=== PATIENT | female | born 1995 | race American Indian/Alaskan Native ===

== ENCOUNTER 2016-12-18 14:17 | Inpatient (IN) | payer MEDICAID, OTHER ==
[~2016-12-18 14:17] MED LIST: Lactated Ringer's 500 ML IV ONE
--- NOTE | 2016-12-18 15:35 | ED PDOC ---
HPI: Abdomen Time Seen by Provider: 12/18/16 14:40 Chief Complaint (Nursing): Abdominal Pain Chief Complaint (Provider): Abd pain History Per: Patient History/Exam Limitations: no limitations Onset/Duration Of Symptoms: Days (3 weeks) Outside of [place] travel?: No Current Symptoms Are (Timing): Still Present Additional Complaint(s): Pt. with abd pain and diarrhea for 3 weeks. Seen at [facility] after being given a laxative with catscan showing some obstruction. Pt. saw Dr. Darian BRITT and sent to the ER for evaluation. Pt. denies any new food, travel, back pain, dysuria, headaches, neck pain, chest pain, dyspnea, fever. Feels weak all over. Past Medical History Reviewed: Nursing Documentation, Vital Signs Vital Signs: Last Vital Signs Temp 98.3 F 12/18/16 14:31 Pulse 139 H 12/18/16 16:37 Resp 22 12/18/16 15:00 BP 118/66 12/18/16 15:00 Pulse Ox 97 12/18/16 17:36 - Medical History PMH: Asthma - Surgical History Surgical History: No Surg Hx - Family History Family History: States: Unknown Family Hx - Living Arrangements Living Arrangements: With Family - Social History Current smoker - smoking cessation education provided: No Alcohol: None Drugs: Denies - Immunization History Hx Tetanus Toxoid Vaccination: No Hx Influenza Vaccination: No Hx Pneumococcal Vaccination: No - Home Medications Home Medications: Ambulatory Orders Medication Instructions Recorded Bisacodyl [Dulcolax] 5 mg PO BID PRN 12/18/16 Ibuprofen [Motrin Tab] 600 mg PO Q6H 12/18/16 Nitrofurantoin Macrocrystals 100 mg PO BID 12/18/16 [Macrobid] Polyethylene Glycol 3350 [Miralax] 17 gm PO DAILY 12/18/16 - Allergies Allergies/Adverse Reactions: Allergies Allergy/AdvReac Type Severity Reaction Status Date / Time peanut Allergy Severe hives Verified 12/18/16 14:31 Review of Systems ROS Statement: Except As Marked, All Systems Reviewed And Found Negative Constitutional: Positive for: Weakness Gastrointestinal: Positive for: Abdominal Pain, Diarrhea Neurological: Positive for: Weakness Physical Exam - Reviewed Nursing Documentation Reviewed: Yes Vital Signs Reviewed: Yes - Physical Exam Appears: Positive for: Uncomfortable Head Exam: Positive for: ATRAUMATIC, NORMAL INSPECTION, NORMOCEPHALIC Skin: Positive for: Normal Color, Warm, DRY Eye Exam: Positive for: EOMI, Normal appearance, PERRL ENT: Positive for: Normal ENT Inspection Neck: Positive for: Normal, Painless ROM, Supple Cardiovascular/Chest: Positive for: Tachycardia. Negative for: Edema Respiratory: Positive for: CNT, Normal Breath Sounds Gastrointestinal/Abdominal: Positive for: Bowel Sounds, Soft, Tenderness ( diffuse) Back: Positive for: Normal Inspection. Negative for: L CVA Tenderness, R CVA Tenderness Extremity: Positive for: Normal ROM. Negative for: Tenderness, Pedal Edema Neurologic/Psych: Positive for: Alert, Oriented. Negative for: Motor/Sensory Deficits - Laboratory Results Result Diagrams: 12/18/16 15:30 12/18/16 15:30 Interpretation Of Abn Labs: 15.2 wbc; 3.2 lactate - ECG ECG: Positive for: Interpreted By Me, Viewed By Me ECG Rhythm: Positive for: Sinus Tachycardia O2 Sat by Pulse Oximetry: 97 Pulse Ox Interpretation: Normal - CT Scan/US ct Other Rad Studies (CT/US): Read By Radiologist Other Rad Interpretation: 15cm dilated sigmoid colon with constipation - Progress ED Course And Treament: 1735: Heart rate improving. Continue monitoring. Feels better. 1820: Stable. Spoke with Dr. Casillas. Will consult. Wants surgical scrub tech to see pt. Spoke with Dr. Farmer. States needs surgical consult. Spoke with surgical scrub tech. Will see pt. Dr. Sanchez aware. Will admit to ICU. Pt. stable. Continue fluids. AAOx3. 1910: Stable. - Critical Care Total Time (In Min): 30 Documented Critical Care: Time excludes all time spent performint seperately billable procedures Disposition - Clinical Impression Clinical Impression: Fecal impaction, Abdominal pain - Patient ED Disposition Is Patient to be Admitted: Yes Counseled Patient/Family Regarding: Studies Performed, Diagnosis - Disposition Disposition Time: 19:09 Condition: SERIOUS - Pt Status Changed To: Hospital Disposition Of: Inpatient - Admit Certification Admit to Inpatient:: After my assessment, the patient will require hospitalization for at least two midnights. This is because of the severity of symptoms shown, intensity of services needed, and/or the medical risk in this patient being treated as an outpatient. - POA Present On Arrival: None
[2016-12-18 15:52] LABS: BASO % 0.1 % (0.0-2.0); EOS % 0.1 % (0.0-4.0); LYMPH # 0.9 K/uL (1.0-4.3); LYMPH % 5.9 % (20.0-40.0); MEAN CELL VOLUME 88.4 fl (81.0-99.0); MEAN CORPUSCULAR HEMOGLOBIN 29.1 pg (27.0-31.0); MEAN CORPUSCULAR HGB CONC 32.9 g/dL (33.0-37.0); MEAN PLATELET VOLUME 7.1 fl (7.2-11.7); MONO # 1.5 K/uL (0.0-0.8); MONO % 9.6 % (0.0-10.0); NEUT # 12.9 K/uL (1.8-7.0); NEUT % 84.3 % (50.0-75.0); PLATELET COUNT 532 K/uL (130-400); RED CELL DISTRIBUTION WIDTH 14.6 % (11.5-14.5); WHITE BLOOD COUNT 15.2 K/uL (4.8-10.8)
[2016-12-18 16:05] LABS: VENOUS BLOOD GAS BASE EXCESS 0.7 mmol/L (0.0-2.0); VENOUS BLOOD GAS PCO2 54 mmHg (40-60); VENOUS BLOOD PH 7.32 (7.32-7.43)
[2016-12-18 16:14] LABS: NEUTROPHIL 85 % (42-75); TOTAL CELLS COUNTED 100
[2016-12-18 16:16] LABS: ALKALINE PHOSPHATASE 81 U/L (38-126); ALT/SGPT 20 U/L (9-52); AST/SGOT 31 U/L (14-36); BILIRUBIN,TOTAL 1.5 mg/dl (0.2-1.3); BLOOD UREA NITROGEN 14 mg/dl (7-17); CALCIUM 9.9 mg/dL (8.4-10.2); CARBON DIOXIDE 23 mmol/L (22-30); CHLORIDE 101 mmol/L (98-107); GFR AFRICAN-AMERICAN > 60; GLUCOSE,RANDOM 116 mg/dL (65-105); MAGNESIUM 2.7 MG/DL (1.6-2.3); PHOSPHOROUS 4.7 mg/dl (2.5-4.5); POTASSIUM 4.1 MMOL/L (3.6-5.0); SODIUM 142 mmol/l (132-148); TOTAL PROTEIN 8.9 G/DL (6.3-8.2)
[2016-12-18 16:59] LABS: PARTIAL THROMBOPLASTIN TIME 26.7 Seconds (25.6-37.1)
[2016-12-18] MEDS ORDERED: Iohexol 300 100 ML IJ ONE (17:24)
[2016-12-18] MEDS ORDERED: Sodium Chloride 0.9% 50 ML IV ONE (17:24)
[2016-12-18] MEDS ORDERED: metroNIDAZOLE 500mg/100ml NS 100 ML IV STA (17:36)
[2016-12-18] MEDS ORDERED: Ciprofloxacin 400mg/200ml D5W 400 MG/200 ML BAG IV STA (17:36)
--- NOTE | 2016-12-18 18:09 | CT ---
PROCEDURE: CT Abdomen and Pelvis with oral and IV contrast. HISTORY: abd pain COMPARISON: Comparison is made with CT performed at [facility] on 12/03/16 TECHNIQUE: Contiguous axial images of the abdomen and pelvis. Oral and IV contrast was administered. Coronal and Sagittal reformats generated and reviewed. Contrast dose: 100 cc Visipaque 320 Radiation dose: Total exam DLP = 703.67 mGy-cm. This CT exam was performed using one or more of the following dose reduction techniques: Automated exposure control, adjustment of the mA and/or kV according to patient size, and/or use of iterative reconstruction technique. FINDINGS: LOWER THORAX: No visible consolidation, pleural effusion, or pneumothorax. LIVER: Unremarkable. GALLBLADDER AND BILE DUCTS: Unremarkable. PANCREAS: Unremarkable. SPLEEN: Unremarkable. ADRENALS: Unremarkable. KIDNEYS AND URETERS: The kidneys enhance symmetrically. No hydronephrosis or obstructing renal calculus. Nonobstructing 4 mm right renal calculus. BLADDER: Distended colon exerts mass effect on the urinary bladder which is deviated anteriorly and to the right. REPRODUCTIVE: Distended colon exerts mass effect on the uterus which is deviated anteriorly. APPENDIX: The appendix appears within normal limits of caliber. BOWEL: The stomach is nondistended. The sigmoid colon is markedly distended impacted with feces measures up to 15 centimeter in diameter and seen extending up to the right upper abdomen. Thickening of the sigmoid colon wall is also noted suspicious for colitis. Mild constipation is also noted in the rest of the colon. PERITONEUM: No significant free fluid. No definite free air. LYMPH NODES: No bulky lymphadenopathy identified. VASCULATURE: No aortic aneurysm. BONES: No acute osseous abnormality is detected. OTHER FINDINGS: None. IMPRESSION: The sigmoid colon is markedly distended impacted with feces measures up to 15 centimeter in diameter and seen extending up to the right upper abdomen. Thickening of the sigmoid colon wall is also noted suspicious for colitis. Mild constipation is also noted in the rest of the colon. Mass effect from distended colon is exerted on the urinary bladder and the uterus. Findings discussed with Dr. De Anda on 12/18/16 at 6 p.m..
[2016-12-18] MEDS ORDERED: Ciprofloxacin 400mg/200ml D5W 400 MG/200 ML BAG IVPB ONE (18:34)
[2016-12-18 18:55] LABS: VENOUS BLOOD GAS BASE EXCESS -3.5 mmol/L (0.0-2.0); VENOUS BLOOD GAS PCO2 41 mmHg (40-60); VENOUS BLOOD PH 7.34 (7.32-7.43)
[2016-12-18] MEDS ORDERED: metroNIDAZOLE 500mg/100ml NS 100 ML IVPB SCH (19:15)
[2016-12-18] MEDS ORDERED: Potassium Chl 40 mEq in D5-NS 1,000 ML IV SCH (19:15)
--- NOTE | 2016-12-18 20:34 | CP.PCM.CON ---
<RiojhonRiley rome Anastacia - Last Filed: 12/18/16 20:48> History of Present Illness - History of Present Illness History of Present Illness: SURGERY CONSULT NOTE FOR DR. DOUGLAS 21F presents to [place] with abdominal pain after being sent here by her GI doctor, Dr. Farmer. Patient states she has always had abdominal pain but this most recent episode started today. She describes the pain as sharp and diffused. She admits a long history of constipation ever since she was a child. She has been treated with stool softeners and laxatives in the past. She is currently having liquid bowel movements but no formed stool. She denies nausea or vomiting. She has not had any intake PO today. Denies chest pain, SOB, fevers , chills. PMH: Asthma, Constipation PSH:denies Social:denies tobacco, alcohol abuse Allergies: peanuts Past Patient History - Infectious Disease Hx of Infectious Diseases: None - Past Social History Alcohol: None Drugs: Denies - PULMONARY Hx Asthma: Yes - PSYCHIATRIC Hx Substance Use: No - SURGICAL HISTORY Hx Surgeries: No - ANESTHESIA Hx Anesthesia: No Meds Allergies/Adverse Reactions: Allergies Allergy/AdvReac Type Severity Reaction Status Date / Time peanut Allergy Severe hives Verified 12/18/16 14:31 - Medications Medications: Current Medications Potassium Chloride/Dextrose/Sod Cl (D5-Ns1l+40meq Kcl) 1,000 mls @ 80 mls/hr IV .[id number] FERNANDO Stop: 12/19/16 19:04 Ciprofloxacin (Cipro 400mg/200ml Dsw) 400 mg in 200 mls @ 200 mls/hr IVPB Q12 FERNANDO Metronidazole (Flagyl 500mg/100ml Ns) 100 mls @ 100 mls/hr IVPB Q8 [facility] Ketorolac Tromethamine (Toradol) 30 mg IVP Q6 PRN PRN Reason: Pain, moderate (4-7) Physical Exam - Constitutional Additional comments: very comfortable - Head Exam Head Exam: ATRAUMATIC - Eye Exam Eye Exam: EOMI, PERRL - ENT Exam ENT Exam: Mucous Membranes Dry - Respiratory Exam Respiratory Exam: Clear to Auscultation Bilateral, NORMAL BREATHING PATTERN - Cardiovascular Exam Cardiovascular Exam: Tachycardia, REGULAR RHYTHM, +S1, +S2 - GI/Abdominal Exam GI & Abdominal Exam: Distended, Firm, Guarding, Rebound, Tenderness (severe). absent: Soft Additional comments: patient has severe pain with any kind of movement. - Exam Additional comments: urine in guillen is very dark red in color - Extremities Exam Extremities exam: Negative for: pedal edema, tenderness - Neurological Exam Neurological exam: Alert, Oriented x3 - Psychiatric Exam Psychiatric exam: Anxious - Skin Skin Exam: Dry, Intact, Normal Color, Warm Results - Vital Signs Recent Vital Signs: Last Vital Signs Temp 98.1 F 12/18/16 18:52 Pulse 155 H 12/18/16 20:07 Resp 11 L 12/18/16 20:07 BP 143/83 12/18/16 20:07 Pulse Ox 96 12/18/16 20:07 - Labs Result Diagrams: 12/18/16 15:30 12/18/16 15:30 Assessment & Plan - Assessment and Plan (Free Text) Assessment: 21F with abdominal pain 2/2 poss bowel perforation 2/2 severe fecal impaction Plan: - NPO - Pre-op patient - Emergent OR for Ex-Lap/bowel resection/colostomy - Admit to ICU s/p Operation Discussed with Dr. Sonja Cifuentes, PGY1 <Crispin Douglas - Last Filed: 12/18/16 21:12> History of Present Illness - History of Present Illness History of Present Illness: Patient was seen and examined with resident's in the ER department. Agree with resident's note above. Patient has a history of chronic constipation however today developed severe abdominal pain and was seen in the office of Dr. Farmer from gastroenterology and was send to the hospital straight from the office. Patient states that she gets occasional abdominal pains but not as sever as the pain that she has today. Denies any fever or chills, no nausea, no vomiting, reports diarrhea. Denies any urinary symptoms. Meds - Medications Medications: Current Medications Potassium Chloride/Dextrose/Sod Cl (D5-Ns1l+40meq Kcl) 1,000 mls @ 80 mls/hr IV .[id number] FERNANDO Stop: 12/19/16 19:04 Ciprofloxacin (Cipro 400mg/200ml Dsw) 400 mg in 200 mls @ 200 mls/hr IVPB Q12 FERNANDO Metronidazole (Flagyl 500mg/100ml Ns) 100 mls @ 100 mls/hr IVPB Q8 FERNANDO Sodium Chloride (Sodium Chloride 0.9%) 1,000 mls @ 125 mls/hr IV .Q8H FERNANDO Stop: 12/19/16 20:32 Ketorolac Tromethamine (Toradol) 30 mg IVP Q6 PRN PRN Reason: Pain, moderate (4-7) Physical Exam - Constitutional Appears: Non-toxic, No Acute Distress - Head Exam Head Exam: ATRAUMATIC, NORMAL INSPECTION, NORMOCEPHALIC - GI/Abdominal Exam Additional comments: Diffusely tender to palpation, distended, hypoactive bowel sounds, guarding and rebound tenderness Results - Vital Signs Recent Vital Signs: Last Vital Signs Temp 98.1 F 12/18/16 18:52 Pulse 138 H 12/18/16 20:38 Resp 11 L 12/18/16 20:07 BP 143/83 12/18/16 20:07 Pulse Ox 96 12/18/16 20:07 - Labs Result Diagrams: 12/18/16 15:30 12/18/16 15:30 Labs: Laboratory Results - last 24 hr 12/18/16 20:17 Urine Color Larissa Urine Clarity Clear Urine pH 5.0 Ur Specific [place] 1.054 H Urine Protein 30 Urine Glucose (UA) Neg Urine Ketones Trace Urine Blood Negative Urine Nitrate Negative Urine Bilirubin Moderate Urine Urobilinogen 4.0 H Ur Leukocyte Esterase Neg Urine RBC (Auto) 4 H Urine Microscopic WBC 3 Ur Squamous Epith Cells 3 Urine Bacteria Rare Hyaline Casts 0-2 - Imaging and Cardiology CT scan - abdomen Status: Image reviewed by me, Report reviewed by me Assessment & Plan - Assessment and Plan (Free Text) Plan: - Keep NPO - IV fluid hydration - Pain control - Antibiotics - To OR for Exploratory Laparotomy
[2016-12-18] MEDS ORDERED: metroNIDAZOLE 500mg/100ml NS 100 ML IVPB ONE (20:37)
[2016-12-18 20:42] LABS: RBC URINE 4 /hpf (0-3); URINE BACTERIA RARE (<OCC); URINE BILIRUBIN MODERATE (NEGATIVE); URINE BLOOD NEGATIVE (NEGATIVE); URINE COLOR AMBER (YELLOW); URINE GLUCOSE (UA) NEG (Normal); URINE KETONE TRACE mg/dL (NEGATIVE); URINE LEUKOCYTE ESTERASE NEG Leu/uL (Negative); URINE PROTEIN 30 mg/dL (NEGATIVE); WBC URINE 3 /hpf (0-5)
[2016-12-18] MEDS ORDERED: Sodium Chloride 0.9% 1,000 ML IV SCH (20:45)
[2016-12-18] MEDS ORDERED: Midazolam 2 MG/2 ML VIAL ONE (20:54)
[2016-12-18] MEDS ORDERED: Propofol 10 mg/ml Inj (20 ML) ONE (20:54)
[2016-12-18] MEDS ORDERED: Lidocaine Hydrochloride 5 ML INJ ONE (20:55)
[2016-12-18] MEDS ORDERED: Neostigmine Methylsulfate 2 MG/2 ML ML IV ONE (20:55)
[2016-12-18] MEDS ORDERED: Lidocaine 4% (Laryng-O-Jet) Kit MM ONE (20:55)
[2016-12-18] MEDS ORDERED: Succinylcholine 200 mg/10 ml Inj IV ONE (20:55)
[2016-12-18] MEDS ORDERED: Rocuronium 10 mg/ml (5 ml) ONE ×3 (20:57→23:55)
[2016-12-18] MEDS ORDERED: Ciprofloxacin 400mg/200ml D5W 400 MG/200 ML BAG IVPB SCH (21:00)
--- NOTE | 2016-12-18 21:19 | CP.PCM.HP ---
History of Present Illness - History of Present Illness History of Present Illness: CC: abd pain HPI: This is a 21 y/o female with no major chronic medical conditions who was sent to the ER by her GI doctor, Dr. Farmer, after he saw her in clinic today for ongoing abdominal pain. Patient states that she has been to another hospital several times since these symptoms started > 1 week ago, and had been treated with stool softeners and laxatives. She states pain has been getting worse, and she has only been having liquid BMs. No n/v. No blood in stool. She has not been able to take much PO recently. She has had some problems with constipation since she was a child. Denies prior abd surgeries. Denies any f/c. Denies CP/SOB. ROS: 14 systems reviewed, negative other than HPI MHx: Asthma, recurrent constipation SHx: None Allergies: NKDA, only peanuts Medications: None Family Hx: Reviewed, no relevant findings Social Hx: Lives with family, no regular tobacco or EtOH use Present on Admission - Present on Admission Any Indicators Present on Admission: No Past Patient History - Infectious Disease Hx of Infectious Diseases: None - Past Social History Alcohol: None Drugs: Denies - PULMONARY Hx Asthma: Yes - PSYCHIATRIC Hx Substance Use: No - SURGICAL HISTORY Hx Surgeries: No - ANESTHESIA Hx Anesthesia: No Meds Allergies/Adverse Reactions: Allergies Allergy/AdvReac Type Severity Reaction Status Date / Time peanut Allergy Severe hives Verified 12/18/16 14:31 Physical Exam - Constitutional Appears: No Acute Distress - Head Exam Head Exam: ATRAUMATIC, NORMOCEPHALIC - Eye Exam Eye Exam: EOMI, PERRL - ENT Exam ENT Exam: Mucous Membranes Moist - Respiratory Exam Respiratory Exam: Clear to Auscultation Bilateral, NORMAL BREATHING PATTERN - Cardiovascular Exam Cardiovascular Exam: Tachycardia, REGULAR RHYTHM - GI/Abdominal Exam GI & Abdominal Exam: Tenderness Additional comments: abdomen with severe ttp throughout, ? rigidity - Extremities Exam Extremities exam: Positive for: full ROM - Neurological Exam Neurological exam: Alert, CN II-XII Intact, Oriented x3 - Psychiatric Exam Psychiatric exam: Normal Affect, Normal Mood - Skin Skin Exam: Dry, Warm Results - Vital Signs Recent Vital Signs: Last Vital Signs Temp 98.1 F 12/18/16 18:52 Pulse 144 H 12/18/16 21:14 Resp 15 06/09/17 21:14 BP 149/85 12/18/16 21:14 Pulse Ox 98 12/18/16 21:14 - Labs Result Diagrams: 12/18/16 15:30 12/18/16 15:30 Labs: Laboratory Results - last 24 hr 12/18/16 20:17 Urine Color Larissa Urine Clarity Clear Urine pH 5.0 Ur Specific [place] 1.054 H Urine Protein 30 Urine Glucose (UA) Neg Urine Ketones Trace Urine Blood Negative Urine Nitrate Negative Urine Bilirubin Moderate Urine Urobilinogen 4.0 H Ur Leukocyte Esterase Neg Urine RBC (Auto) 4 H Urine Microscopic WBC 3 Ur Squamous Epith Cells 3 Urine Bacteria Rare Hyaline Casts 0-2 - Imaging and Cardiology CT scan - abdomen Status: Image reviewed by me (extensive fecal impaction, possible colitis), Report reviewed by me Assessment & Plan (1) Abdominal pain Assessment and Plan: 21 y/o female presenting with persistent and worsening abdominal pain with concern for perforation and peritonitis. -Patient is planned for OR this evening -Admit to ICU post surgery -Cont NPO, IVF for now -Cont IV cipro and flagyl Status: Acute (2) Fecal impaction Status: Acute (3) Diarrhea Status: Acute
[2016-12-18] MEDS ORDERED: Sodium Chloride 0.9% 300 ML IV ONE (21:30)
[2016-12-18] MEDS ORDERED: Lactated Ringer's 1,000 ML IV ONE ×3 (21:55→23:10)
--- NOTE | 2016-12-18 22:20 | CON ---
DATE: 12/18/2016 REASON FOR CONSULTATION: A 21-year-old female admitted with abdominal pain, abdominal distention. CT shows markedly distended sigmoid colon impacted with feces, thickening of the sigmoid colon suspicious for colitis. HISTORY OF PRESENT ILLNESS: The patient is a 21-year-old female with history of constipation alternating with diarrhea since last 3 weeks. The patient was seen in the Emergency Room on 12/05. CT of the abdomen obtained at that time showed markedly distended sigmoid colon with fecal impaction and thickening of the sigmoid colon suggesting colitis. The patient was given laxative and was discharged home with no significant improvement. She was seen in the Emergency Room at [facility] [address] of the abdomen obtained showed similar findings. She was discharged with a laxative and to follow up with GI, Dr. Farmer. The patient was seen in his office today, was referred to the Emergency Room for further evaluation. In ER, the patient was noted to have abdominal distention. VITAL SIGNS: Temperature 98.3, heart rate of 155. Respiratory rate 22, oxygen saturation 97% on room air, blood pressure 128/77. HISTORY OF PRESENT ILLNESS: The patient was given for pain with mild to moderate improvement. CAT scan of the abdomen obtained showed thickening of the sigmoid colon with fecal impaction. Admitted to ICU for further evaluation. PAST MEDICAL HISTORY: As noted above. PAST SURGICAL HISTORY: Negative. FAMILY HISTORY: Noncontributory. SOCIAL HISTORY: Denies smoking, drinking alcohol. No recreational drug use. PHYSICAL EXAMINATION: GENERAL: Well-built female in moderate distress secondary to abdominal pain and distention. VITAL SIGNS: Temperature 98.1, heart rate 138, respiratory rate 22, blood pressure 122/48, saturation 97%. HEENT: Pupils are reactive. Conjunctivae are pink. Sclerae white. NECK: Supple. CHEST: Bilateral breath sounds. Clear to auscultation. HEART: Rhythm regular, S1, S2 normal intensity. No S3, S4 gallop. No audible murmur. ABDOMEN: Abdominal distention, mostly in the lower abdomen. Bowel sounds present, but diminished. EXTREMITIES: No clubbing, cyanosis, or edema. NEUROLOGIC: Nonfocal. LABORATORY DATA: SMA-7: Sodium 142, potassium 4.1, chloride 101, CO2 23, blood urea nitrogen 14, creatinine 0.9, glucose 116, calcium 9.9, phosphorus 4.7 , magnesium 2.7, total bilirubin 1.5, AST 31, ALT 20, alkaline phosphatase 81, total protein 8.9, albumin 4.5. WBC 15.2, hemoglobin 14.8, hematocrit 45, platelet count neutrophils 84.3, lymphocytes 5.9, monocytes 9.6. PT 14.4, INR 1.3, PTT 26.7. Lactate 2.3. ASSESSMENT: A 21-year-old female admitted with abdominal pain, abdominal distention. CT of the abdomen shows dilated sigmoid colon with fecal impaction and marked thickening, suggesting colitis. PLAN: 1. Needs GI workup to evaluate for rectal mass versus colitis. 2. Keep n.p.o., D5 normal saline with 20 of KCl at 100 mL per hour. 3. Straight cath to reduce bladder distention. 4. Toradol 30 mg IV q. 6 p.r.n. for pain, ciprofloxacin 400 mg IV q. 12, Flagyl 500 mg q. 8. 5. Stool for Clostridium difficile. 6. GI consult evaluation. Lio Sanchez MD cc: 170 TT: 12/18/2016 22:19:00 Confirmation # [id number] Dictation # [id number] [id number]
[2016-12-18] MEDS ORDERED: Sevoflurane - Inhalation Anesthetic Liq (250 ml) ONE (23:39)
[2016-12-19] MEDS ORDERED: Liquid Adhesive TOP ONE (02:36)
[2016-12-19] MEDS ORDERED: HYDROmorphone 0.5 mg/0.5 ml ISec ONE (03:01)
[2016-12-19] MEDS: HYDROmorphone 0.5 mg/0.5 ml ISec IVP PRN ×3 (03:05→03:35)
[2016-12-19] MEDS ORDERED: Lactated Ringer's 1,000 ML IV SCH (03:10)
[2016-12-19] MEDS ORDERED: HYDROmorphone 0.5 mg/0.5 ml ISec IVP PRN (03:10)
--- NOTE | 2016-12-19 03:15 | PCM.SURG1 ---
Surgeon's Initial Post Op Note - Surgeon's Notes Surgeon: Sonja Functional Tester: Emiliano Cifuentes Pre-Operative Diagnosis: fecal impaction/poss bowel perforation Operative Findings: dilated colon with large hard rock stool Post-Operative Diagnosis: fecal impaction, severely dilated colon, poss perforation Operation Performed: exploratory laparotomy with hartmanns procedure Specimen/Specimens Removed: descending/sigmoid colon, stool Estimated Blood Loss: EBL {In ML}: 150 Date of Surgery/Procedure: 12/19/16 Time of Surgery/Procedure: 21:30
[2016-12-19] MEDS ORDERED: Sodium Chloride 0.9% 1,000 ML IV SCH (03:19)
--- NOTE | 2016-12-19 06:17 | OP ---
PROCEDURE DATE: 12/19/2016 PREOPERATIVE DIAGNOSIS: Large bowel obstruction POSTOPERATIVE DIAGNOSIS: Same PROCEDURE: Exploratory laparotomy, Clarisse's procedure SURGEON: Crispin Casillas MD TENNIS CAMP INSTRUCTOR: SECOND TENNIS CAMP INSTRUCTOR: Emiliano. ANESTHESIA: General with endotracheal intubation. INTRAVENOUS FLUIDS: Crystalloids. ESTIMATED BLOOD LOSS: 100 mL INTRAOPERATIVE FINDINGS: Severe distention of the sigmoid and the proximal descending colon and severe fecal impaction. SPECIMEN: Sigmoid colon and proximal rectum with proximal descending colon. BRIEF HISTORY: The patient is a very pleasant 21-year-old female who has a chronic history of constipation since the age of 2; however, patient never experienced severe pain as when they brought her to the hospital today. Initially, the patient presented to her hydraulic spinner and was immediately sent to the Emergency Room by her hydraulic spinner. The patient states the pain was of sudden onset and the patient was severely tachycardic to 150 upon presentation to the Emergency Room. Upon further investigation, the patient was found to have elevated white blood cell count as well as severe abdominal distension and dilatation of the sigmoid colon and severe fecal impaction all the way down to the mid descending colon. All the risks and benefits of the procedure were explained to the patient and with the patient having a full understanding of all the risks and benefits involved, informed consent was obtained and the patient was taken to the operating room for above stated procedure. PROCEDURE: The patient was brought into the operating room and placed supine on the operating table. Bilateral Flowtron boots were applied to patient's lower extremities. After successful induction of anesthesia and successful endotracheal intubation by the anesthesia team, the patient's abdomen was prepped with ChloraPrep stick and draped in the standard surgical fashion. Prior to the beginning of the procedure, timeout was called in the room and everyone in the room were in agreement. Using 10 blade scalpel knife midline laparotomy incision was made extending approximately 15 cm above the umbilicus and an approximate 10 cm below the umbilicus. Once this was accomplished, dissection was carried down with electrical cautery until the fascial layer was visualized. Fascia was transected with electrical cautery and 2 Katelyn clamps were placed on 2 ends of the fascia. At that point in time fascia was completely opened up and the patient's abdominal cavity was entered. At that point in time, once the fascia was completely opened up, we examined the abdominal cavity and it appeared that the sigmoid and the proximal descending colon as well as the rectum had a severe fecal impaction with a rock hard stool. At that point in time, decision was made to resect the involved segment of the colon that was atonic and redundant, so the peritoneal reflection was mobilized along the white line of Toldt. At that point in time, the mesentery was taken with the impact LigaSure all the way down to the proximal rectum. At that point in time, I could not mobilize any more so the decision was made to transect the colon at the mid to distal descending colon. At that point in time , once this was accomplished, a small kaley was made in the mesentery and the Katelyn clamp was placed through the mesentery and a 75 blue load JORDAN stapler was fired across the colon. Once this was accomplished, I made a decision to open up the colon and disimpact the patient in order to get some mobility of the colon. I was able to scoop out huge chunks of rock hard stool and that was passed off to the basin and passed off the field. At that point in time, the defect in the bowel was closed with running locking silk suture and at that point in time, attention was turned to the proximal rectum. The proximal rectum was transected with several bites of the blue load of JORDAN stapler; however, the colon appeared to be extremely thick for the stapler so at that point in time, the rest of the colon was taken with the impact LigaSure device and once this was accomplished, the patient's abdominal cavity was copiously irrigated and defect of the rectal stump was closed with a running 0 silk suture and subsequent to that with running locking 0 Vicryl suture. Once this was accomplished, our attention was turned to the left lower quadrant of the patient's abdomen. A circular incision was made in the left lower quadrant and subsequent to that, dissection was carried down with electrical cautery until the anterior rectus sheath was encountered. Cruciate incision was made in the anterior rectus sheath and the rectus muscle was retracted medially and laterally. At that point in time the posterior rectus sheath was encountered and another cruciate incision was made in the posterior rectus sheath. At that point in time, I was able to pass 2 fingers through the colostomy opening and once this was accomplished, a Bryce clamp was placed through the colostomy opening and the descending colon was brought up to the skin. At that point in time, the patient's abdomen was copiously irrigated and fluid was suctioned out. I made a decision to place a #19 Brody drain in the pelvis, right next to the rectal stump. Once this was accomplished, the 19Fr Brody drain was secured in place with silk suture. At that point in time, fascial layer was closed with two #1 loop PDS, one from above, one from below and tied in the middle and the patient's wound was irrigated and dried. Christiano were applied to the skin. At that point in time, our attention was turned to the colostomy. The colostomy was opened up with electrical cautery and a colostomy was matured with Any sutures at 12, 3, 9, and 6 o'clock positions with 3-0 Monocryl suture. Once that was accomplished, the rest of the colostomy maturation was done with 3-0 Monocryl suture in a circumferential fashion and at that point in time, once the colostomy was matured, it was digitalized and appeared to be patent. At that point in time, the patient's abdomen was washed and dried and a clean dressing was applied to the incision site and ostomy appliance to the colostomy. The patient was successfully extubated by the anesthesia team, transferred to the [facility] [place], and taken to the intensive care unit. At the end of the procedure, all instrument counts, needles and sponges were correct. Crispin Casillas MD cc: [id number] TT: 12/19/2016 06:16:43 jasen KRAUS
--- NOTE | 2016-12-19 07:58 | RAD ---
PROCEDURE: Radiographs of the chest and abdomen (obstructive series) HISTORY: pain COMPARISON: No prior. TECHNIQUE: AP radiograph of the chest, with upright and supine radiographs of the abdomen. FINDINGS: CHEST: Lungs: Clear. Cardiovascular: Normal size heart. No pulmonary vascular congestion. Pleura: No pleural fluid. No pneumothorax. Other findings: None. ABDOMEN AND PELVIS: Bowel: Unremarkable bowel gas pattern. No evidence of mechanical obstruction. Oral contrast in the bowel. Free air: None. Bones: Unremarkable. Other findings: None. IMPRESSION: Unremarkable radiographs of chest and abdomen. No evidence of mechanical bowel obstruction.
[2016-12-19 09:41] LABS: HEMATOCRIT 40.2 % (34.0-47.0); MEAN CELL VOLUME 88.9 fl (81.0-99.0); MEAN CORPUSCULAR HEMOGLOBIN 29.1 pg (27.0-31.0); MEAN CORPUSCULAR HGB CONC 32.8 g/dL (33.0-37.0); RED CELL DISTRIBUTION WIDTH 14.8 % (11.5-14.5); WHITE BLOOD COUNT 16.6 K/uL (4.8-10.8)
[2016-12-19 09:54] LABS: BLOOD UREA NITROGEN 8 mg/dl (7-17); CALCIUM 8.5 mg/dL (8.4-10.2); CARBON DIOXIDE 23 mmol/L (22-30); CHLORIDE 108 mmol/L (98-107); GFR AFRICAN-AMERICAN > 60; GLUCOSE,RANDOM 122 mg/dL (65-105); POTASSIUM 4.2 MMOL/L (3.6-5.0); SODIUM 137 mmol/l (132-148)
[2016-12-19] MEDS: Piperacillin/Tazobact 3.375 GM in Sodium Chloride 0.9% 100 ML IVPB SCH ×5 (10:00→21:45)
--- NOTE | 2016-12-19 10:06 | CP.PCM.PN ---
Subjective - Date & Time of Evaluation Date of Evaluation: 12/19/16 Time of Evaluation: 10:00 - Subjective Subjective: No fever pain controlled - on BRASS CUTTER pump denies CP no SOB NGT in place- some biolus material noted YAMILE drain with serosanguinous fluid Colostomy bag in place Objective - Vital Signs/Intake and Output Vital Signs (last 24 hours): Temp Pulse Resp BP Pulse Ox 98.9 F 123 H 15 123/70 100 12/19/16 05:01 12/19/16 05:01 12/19/16 05:01 12/19/16 05:01 12/19/16 05:01 Intake and Output: 12/19/16 12/19/16 06:59 18:59 Intake Total 3300 Balance 3300 - Medications Medications: Current Medications Acetaminophen (Tylenol 325mg Tab) 650 mg PO Q4 PRN PRN Reason: Fever >100.4 F Hydromorphone HCl (Dilaudid 0.2 Mg/Ml Outsole Cementer) 6 mg IV Q6 [facility] PRN Reason: Protocol Last Admin: 12/19/16 03:45 Dose: 6 mg Hydromorphone HCl (Dilaudid) 1 mg IVP Q4 PRN PRN Reason: Pain, moderate (4-7) Potassium Chloride/Dextrose/Sod Cl (D5-Ns1l+40meq Kcl) 1,000 mls @ 80 mls/hr IV .[id number] [facility] Stop: 12/19/16 19:04 Lactated Ringer's (Lactated Ringer's) 1,000 mls @ 120 mls/hr IV .Q8H20M [facility] Piperacillin Sod/Tazobactam (Sod 3.375 gm/ Sodium Chloride) 100 mls @ 100 mls/ hr IVPB Q6 [facility] Sodium Chloride (Sodium Chloride 0.9%) 1,000 mls @ 150 mls/hr IV .Q6H40M [facility] Stop: 12/19/16 20:32 Last Admin: 12/19/16 04:30 Dose: 0 mls Pantoprazole Sodium (Protonix Inj) 40 mg IVP DAILY [facility] - Labs Labs: 12/19/16 09:25 PT 14.4 Seconds (9.8-13.1) H 12/18/16 15:30 INR 1.3 (0.9-1.2) H 12/18/16 15:30 APTT 26.7 Seconds (25.6-37.1) 12/18/16 15:30 - Constitutional Appears: No Acute Distress - Head Exam Head Exam: NORMAL INSPECTION, NORMOCEPHALIC - Eye Exam Eye Exam: EOMI, Normal appearance, PERRL Pupil Exam: NORMAL ACCOMODATION - ENT Exam ENT Exam: Mucous Membranes Moist, Normal External Ear Exam - Neck Exam Neck Exam: Full ROM. absent: Meningismus - Respiratory Exam Respiratory Exam: NORMAL BREATHING PATTERN. absent: Respiratory Distress - Cardiovascular Exam Cardiovascular Exam: Tachycardia, REGULAR RHYTHM, +S1, +S2 - GI/Abdominal Exam GI & Abdominal Exam: Distended, Tenderness, Hypoactive Bowel Sounds Additional comments: Surgical dressing intact YAMILE drain on the right Colostomy bag on the left - Extremities Exam Extremities Exam: Full ROM, Normal Capillary Refill. absent: Calf Tenderness - Back Exam Back Exam: Full ROM - Neurological Exam Neurological Exam: Alert, Awake, CN II-XII Intact, Oriented x3 Neuro motor strength exam: Left Upper Extremity: 5, Right Upper Extremity: 5, Left Lower Extremity: 5, Right Lower Extremity: 5 - Psychiatric Exam Psychiatric exam: Normal Affect, Normal Mood - Skin Skin Exam: Dry, Normal Color, Warm Assessment and Plan (1) Perforation of colon Status: Acute (2) Fecal impaction Status: Acute (3) S/P partial resection of colon Status: Acute (4) S/P colostomy Status: Acute - Assessment and Plan (Free Text) Assessment: 21 y/o lady with hx of Constipation , came in bec of severe abd pain . CT of abd : fecal impaction, abd distention. Developed severe acute abdomen- underwent Explor Lap - Partial Colectomy with Colostomy. Monitored post op in ICU (1) Perforation of colon Status: Acute Surgery consulted S/p Explor Lap , Partial Colon Resection with Colostomy IVF hydration Keep NPO Pain mgt- pt on BRASS CUTTER cont IV Zosyn NGT YAMILE drain (2) Fecal impaction Status: Acute (3) S/P partial resection of colon 12/19 Status: Acute (4) S/P colostomy Status: Acute
--- NOTE | 2016-12-19 11:53 | CP.PCM.PN ---
<Riley Cifuentes - Last Filed: 12/19/16 11:50> Subjective - Date & Time of Evaluation Date of Evaluation: 12/19/16 Time of Evaluation: 08:00 - Subjective Subjective: SURGERY PROGRESS NOTE FOR DR. DOUGLAS 21F seen and examined at bedside. Patient is resting comfortably. States pain is controlled with INCOME TAX RETURN PREPARER, denies nausea, vomiting, fevers. Complains of NGT discomfort. Objective - Vital Signs/Intake and Output Vital Signs (last 24 hours): Temp Pulse Resp BP Pulse Ox 98.9 F 123 H 15 123/70 100 12/19/16 05:01 12/19/16 05:01 12/19/16 05:01 12/19/16 05:01 12/19/16 05:01 Intake and Output: 12/19/16 12/19/16 06:59 18:59 Intake Total 3300 Balance 3300 - Medications Medications: Current Medications Acetaminophen (Tylenol 325mg Tab) 650 mg PO Q4 PRN PRN Reason: Fever >100.4 F Hydromorphone HCl (Dilaudid 0.2 Mg/Ml [employer]) 6 mg IV Q6 [facility] PRN Reason: Protocol Last Admin: 12/19/16 03:45 Dose: 6 mg Hydromorphone HCl (Dilaudid) 1 mg IVP Q4 PRN PRN Reason: Pain, moderate (4-7) Potassium Chloride/Dextrose/Sod Cl (D5-Ns1l+40meq Kcl) 1,000 mls @ 80 mls/hr IV .[id number] [facility] Stop: 12/19/16 19:04 Lactated Ringer's (Lactated Ringer's) 1,000 mls @ 120 mls/hr IV .Q8H20M [facility] Piperacillin Sod/Tazobactam (Sod 3.375 gm/ Sodium Chloride) 100 mls @ 100 mls/ hr IVPB Q6 [facility] Sodium Chloride (Sodium Chloride 0.9%) 1,000 mls @ 150 mls/hr IV .Q6H40M [facility] Stop: 12/19/16 20:32 Last Admin: 12/19/16 04:30 Dose: 0 mls Pantoprazole Sodium (Protonix Inj) 40 mg IVP DAILY [facility]NA[facility] - Labs Labs: 12/19/16 09:25 06/10/17 09:25 PT 14.4 Seconds (9.8-13.1) H 12/18/16 15:30 INR 1.3 (0.9-1.2) H 12/18/16 15:30 APTT 26.7 Seconds (25.6-37.1) 12/18/16 15:30 - Constitutional Appears: No Acute Distress - Respiratory Exam Respiratory Exam: Clear to Ausculation Bilateral, NORMAL BREATHING PATTERN - Cardiovascular Exam Cardiovascular Exam: Tachycardia, REGULAR RHYTHM, +S1, +S2 - GI/Abdominal Exam GI & Abdominal Exam: Soft, Tenderness. absent: Distended, Firm, Guarding, Rigid , Rebound Additional comments: colostomy in place. Stoma pink. YAMILE drain contains serosang fluid. midline dressing CDI. NGT in place - Exam Additional comments: urine from guillen better in color, more yellow, approx 700cc in bag - Neurological Exam Neurological Exam: Alert, Awake Assessment and Plan - Assessment and Plan (Free Text) Assessment: 21F s/p ex-lap, partial colon resection, end colostomy, #5 hours post op - pain control, continue antibiotics - strict Is:Os, continue IVFs - monitor drain/monitor ostomy - Q1hr incentive spirometer - CBC next day AM Discussed with Dr. Sonja Cifuentes, PGY1 <Crispin Douglas - Last Filed: 12/19/16 17:05> Subjective - Date & Time of Evaluation Time of Evaluation: 17:00 - Subjective Subjective: Patient was seen and examined at the bedside. Agree with resident's note above. Objective - Vital Signs/Intake and Output Vital Signs (last 24 hours): Temp Pulse Resp BP Pulse Ox 98.9 F 123 H 15 123/70 100 12/19/16 05:01 12/19/16 05:01 12/19/16 05:01 12/19/16 05:01 12/19/16 05:01 Intake and Output: 12/19/16 12/19/16 06:59 18:59 Intake Total 3300 Balance 3300 - Medications Medications: Current Medications Acetaminophen (Tylenol 325mg Tab) 650 mg PO Q4 PRN PRN Reason: Fever >100.4 F Enoxaparin Sodium (Lovenox) 40 mg SC DAILY [facility]ERNANDO PRN Reason: Protocol Hydromorphone HCl (Dilaudid 0.2 Mg/Ml [employer]) 6 mg IV Q6 [facility] PRN Reason: Protocol Last Admin: 12/19/16 03:45 Dose: 6 mg Hydromorphone HCl (Dilaudid) 1 mg IVP Q4 PRN PRN Reason: Pain, moderate (4-7) Potassium Chloride/Dextrose/Sod Cl (D5-Ns1l+40meq Kcl) 1,000 mls @ 80 mls/hr IV .[id number] [facility] Stop: 12/19/16 19:04 Lactated Ringer's (Lactated Ringer's) 1,000 mls @ 120 mls/hr IV .Q8H20M [facility] Piperacillin Sod/Tazobactam (Sod 3.375 gm/ Sodium Chloride) 100 mls @ 100 mls/ hr IVPB Q6 [facility] Sodium Chloride (Sodium Chloride 0.9%) 1,000 mls @ 150 mls/hr IV .Q6H40M [facility] Stop: 12/19/16 20:32 Last Admin: 12/19/16 04:30 Dose: 0 mls Pantoprazole Sodium (Protonix Inj) 40 mg IVP DAILY [facility] - Labs Labs: 12/19/16 09:25 12/19/16 09:25 PT 14.4 Seconds (9.8-13.1) H 12/18/16 15:30 INR 1.3 (0.9-1.2) H 12/18/16 15:30 APTT 26.7 Seconds (25.6-37.1) 12/18/16 15:30 Assessment and Plan - Assessment and Plan (Free Text) Plan: - Keep NPO - NG tube to wall suction - Pain control with INCOME TAX RETURN PREPARER - Continue antibiotics - IV fluids - Insentive spirometry - Throat lozengies - DVT ppx - Repeat labs in am - Will follow
[2016-12-19] MEDS: Benzocaine/Menthol (Cepacol) Lozenge PO PRN (20:41)
[2016-12-20] MEDS: Piperacillin/Tazobact 3.375 GM in Sodium Chloride 0.9% 100 ML IVPB SCH ×4 (04:55→22:09)
[2016-12-20 07:13] LABS: BASO % 0.3 % (0.0-2.0); EOS % 0.2 % (0.0-4.0); HEMATOCRIT 36.3 % (34.0-47.0); LYMPH # 1.4 K/uL (1.0-4.3); LYMPH % 9.4 % (20.0-40.0); MEAN CELL VOLUME 88.7 fl (81.0-99.0); MEAN CORPUSCULAR HEMOGLOBIN 28.6 pg (27.0-31.0); MEAN CORPUSCULAR HGB CONC 32.3 g/dL (33.0-37.0); MEAN PLATELET VOLUME 6.6 fl (7.2-11.7); MONO # 1.6 K/uL (0.0-0.8); MONO % 10.8 % (0.0-10.0); NEUT # 11.5 K/uL (1.8-7.0); NEUT % 79.3 % (50.0-75.0); RED CELL DISTRIBUTION WIDTH 15.2 % (11.5-14.5); WHITE BLOOD COUNT 14.4 K/uL (4.8-10.8)
[2016-12-20 07:26] LABS: BLOOD UREA NITROGEN 5 mg/dl (7-17); CARBON DIOXIDE 26 mmol/L (22-30); CHLORIDE 106 mmol/L (98-107); GFR AFRICAN-AMERICAN > 60; GLUCOSE,RANDOM 104 mg/dL (65-105); POTASSIUM 3.8 MMOL/L (3.6-5.0); SODIUM 138 mmol/l (132-148)
--- NOTE | 2016-12-20 07:41 | CP.CCUPN ---
CCU Subjective - Physician Review Events Since Last Encounter (Free Text): 12/20/16 07:37 Patient awake, no distress, NG tube in place, no fever, events reviewed CCU Objective - Vital Signs / Intake & Output Vital Signs (Last 4 hours): Vital Signs Temp Pulse Resp BP Pulse Ox 12/20/16 04:00 99.1 F 119 H 22 129/69 100 - Physical Exam Head: Positive for: Atraumatic, Normocephalic Pupils: Positive for: PERRL Extroacular Muscles: Positive for: EOMI Conjunctiva: Positive for: Normal Mouth: Positive for: Moist Mucous Membranes Nose (External): Positive for: Atraumatic Respiratory/Chest: Positive for: Clear to Auscultation Cardiovascular: Positive for: Regular Rate and Rhythm, Normal S1, S2 Abdomen: Positive for: Other (colostomy in place) Upper Extremity: Positive for: Normal Inspection Lower Extremity: Positive for: Normal Inspection Neurological: Positive for: Speech Normal Skin: Positive for: Warm Psychiatric: Positive for: Alert, Oriented x 3 - Medications Active Medications: Active Medications Generic Name Dose Route Start Last Admin Trade Name Freq PRN Reason Stop Dose Admin Acetaminophen 650 mg 12/19/16 03:21 Tylenol 325mg Tab PO Q4 PRN Fever >100.4 F Benzocaine/Menthol 1 lissy 12/19/16 19:55 12/19/16 20:41 Cepacol Sore Throat PO 1 lissy Q6H PRN Administration Sore Throat Enoxaparin Sodium 40 mg 12/20/16 09:00 Lovenox SC DAILY FERNANDO Protocol Hydromorphone HCl 1 mg 12/19/16 03:17 Dilaudid IVP Q4 PRN Pain, moderate (4-7) Lactated Ringer's 1,000 mls @ 120 mls/hr 12/19/16 03:10 Lactated Ringer's IV .Q8H20M [facility] Piperacillin Sod/Tazobactam 100 mls @ 100 mls/hr 12/19/16 04:00 12/20/16 04: 55 Sod 3.375 gm/ Sodium Chloride IVPB 100 mls/hr Q6 [facility] Administration Pantoprazole Sodium 40 mg 12/19/16 09:00 12/19/16 09:00 Protonix Inj IVP 40 mg DAILY [facility]ERNANDO Administration - Patient Studies Lab Studies: Lab Studies 12/20/16 12/20/16 12/19/16 Range/Units 05:30 05:30 09:25 WBC 14.4 H (4.8-10.8) K/uL RBC 4.09 (3.80-5.20) Mil/uL Hgb 11.7 L (12.0-16.0) g/dL Hct 36.3 (34.0-47.0) % MCV 88.7 (81.0-99.0) fl MCH 28.6 (27.0-31.0) pg MCHC 32.3 L (33.0-37.0) g/dL RDW 15.2 H (11.5-14.5) % Plt Count 361 (130-400) K/uL MPV 6.6 L (7.2-11.7) fl Neut % (Auto) 79.3 H (50.0-75.0) % Lymph % (Auto) 9.4 L (20.0-40.0) % Gordon % (Auto) 10.8 H (0.0-10.0) % Eos % (Auto) 0.2 (0.0-4.0) % Baso % (Auto) 0.3 (0.0-2.0) % Neut # 11.5 H (1.8-7.0) K/uL Lymph # 1.4 (1.0-4.3) K/uL Gordon # 1.6 H (0.0-0.8) K/uL Eos # 0.0 (0.0-0.7) K/uL Baso # 0.0 (0.0-0.2) K/uL Sodium 138 137 (132-148) mmol/l Potassium 3.8 4.2 (3.6-5.0) MMOL/L Chloride 106 108 H (98-107) mmol/L Carbon Dioxide 26 23 (22-30) mmol/L Anion Gap 10 10 (10-20) BUN 5 L 8 (7-17) mg/dl Creatinine 0.7 0.7 (0.7-1.2) mg/dL Est GFR ( Amer) > 60 > 60 Est GFR (Non-Af Amer) > 60 > 60 Random Glucose 104 122 H (65-105) mg/dL Calcium 8.0 L 8.5 (8.4-10.2) mg/dL 12/19/16 Range/Units 09:25 WBC 16.6 H (4.8-10.8) K/uL RBC 4.52 (3.80-5.20) Mil/uL Hgb 13.2 (12.0-16.0) g/dL Hct 40.2 (34.0-47.0) % MCV 88.9 (81.0-99.0) fl MCH 29.1 (27.0-31.0) pg MCHC 32.8 L (33.0-37.0) g/dL RDW 14.8 H (11.5-14.5) % Plt Count 377 D (130-400) K/uL MPV (7.2-11.7) fl Neut % (Auto) (50.0-75.0) % Lymph % (Auto) (20.0-40.0) % Gordon % (Auto) (0.0-10.0) % Eos % (Auto) (0.0-4.0) % Baso % (Auto) (0.0-2.0) % Neut # (1.8-7.0) K/uL Lymph # (1.0-4.3) K/uL Gordon # (0.0-0.8) K/uL Eos # (0.0-0.7) K/uL Baso # (0.0-0.2) K/uL Sodium (132-148) mmol/l Potassium (3.6-5.0) MMOL/L Chloride (98-107) mmol/L Carbon Dioxide (22-30) mmol/L Anion Gap (10-20) BUN (7-17) mg/dl Creatinine (0.7-1.2) mg/dL Est GFR ( Amer) Est GFR (Non-Af Amer) Random Glucose (65-105) mg/dL Calcium (8.4-10.2) mg/dL Laboratory Results - last 24 hr 12/19/16 12/19/16 12/20/16 09:25 09:25 05:30 WBC 16.6 H 14.4 H RBC 4.52 4.09 Hgb 13.2 11.7 L Hct 40.2 36.3 MCV 88.9 88.7 MCH 29.1 28.6 MCHC 32.8 L 32.3 L RDW 14.8 H 15.2 H Plt Count 377 D 361 MPV 6.6 L Neut % (Auto) 79.3 H Lymph % (Auto) 9.4 L Gordon % (Auto) 10.8 H Eos % (Auto) 0.2 Baso % (Auto) 0.3 Neut # 11.5 H Lymph # 1.4 Gordon # 1.6 H Eos # 0.0 Baso # 0.0 Sodium 137 Potassium 4.2 Chloride 108 H Carbon Dioxide 23 Anion Gap 10 BUN 8 Creatinine 0.7 Est GFR ( Amer) > 60 Est GFR (Non-Af Amer) > 60 Random Glucose 122 H Calcium 8.5 12/20/16 05:30 WBC RBC Hgb Hct MCV MCH MCHC RDW Plt Count MPV Neut % (Auto) Lymph % (Auto) Gordon % (Auto) Eos % (Auto) Baso % (Auto) Neut # Lymph # Gordon # Eos # Baso # Sodium 138 Potassium 3.8 Chloride 106 Carbon Dioxide 26 Anion Gap 10 BUN 5 L Creatinine 0.7 Est GFR ( Amer) > 60 Est GFR (Non-Af Amer) > 60 Random Glucose 104 Calcium 8.0 L Assessment/Plan - Assessment and Plan (Free Text) Assessment: A/P Chronic constipation, abdominal pain, colonic distension, fecal impaction s/p surgery with partial colon resection and colostomy, h/o asthma - Continue meds - Pain control - Surgery follow up - GI follow up - IV fluid - Pulmonary toilets
[2016-12-20] MEDS ORDERED: DEXTROSE IV SCH (08:15)
[2016-12-20] MEDS ORDERED: WATER IV SCH (08:15)
[2016-12-20] MEDS ORDERED: POTASSIUM CH IV SCH (08:15)
[2016-12-20] MEDS ORDERED: D5W IV SCH (08:15)
--- NOTE | 2016-12-20 08:25 | CP.PCM.PN ---
<Riley Cifuentes - Last Filed: 12/20/16 08:56> Subjective - Date & Time of Evaluation Date of Evaluation: 12/20/16 Time of Evaluation: 07:00 - Subjective Subjective: SURGERY CONSULT FOR DR. CASILLAS 21F seen and examined at bedside. Patient states abdominal pain controlled, denies nausea/vomiting, fevers, chills. Uncomfortable NGT in the throat Objective - Vital Signs/Intake and Output Vital Signs (last 24 hours): Temp Pulse Resp BP Pulse Ox 99.1 F 119 H 22 129/69 100 12/20/16 04:00 12/20/16 04:00 12/20/16 04:00 12/20/16 04:00 12/20/16 04:00 - Medications Medications: Current Medications Acetaminophen (Tylenol 325mg Tab) 650 mg PO Q4 PRN PRN Reason: Fever >100.4 F Benzocaine/Menthol (Cepacol Sore Throat) 1 lissy PO Q6H PRN PRN Reason: Sore Throat Last Admin: 12/19/16 20:41 Dose: 1 lissy Enoxaparin Sodium (Lovenox) 40 mg SC DAILY [facility] PRN Reason: Protocol Hydromorphone HCl (Dilaudid) 0.5 mg IVP Q4 PRN PRN Reason: Pain, moderate (4-7) Lactated Ringer's (Lactated Ringer's) 1,000 mls @ 120 mls/hr IV .Q8H20M [facility] Piperacillin Sod/Tazobactam (Sod 3.375 gm/ Sodium Chloride) 100 mls @ 100 mls/ hr IVPB Q6 [facility] Last Admin: 12/20/16 04:55 Dose: 100 mls/hr Potassium Chloride/Dextrose (100 ml/ Dextrose) 1,100 mls @ 80 mls/hr IV .[id number] [facility] Stop: 12/21/16 08:15 Pantoprazole Sodium (Protonix Inj) 40 mg IVP DAILY [facility] Last Admin: 12/19/16 09:00 Dose: 40 mg - Labs Labs: 12/20/16 05:30 12/20/16 05:30 PT 14.4 Seconds (9.8-13.1) H 12/18/16 15:30 INR 1.3 (0.9-1.2) H 12/18/16 15:30 APTT 26.7 Seconds (25.6-37.1) 12/18/16 15:30 - Constitutional Appears: Non-toxic, No Acute Distress - Respiratory Exam Respiratory Exam: Clear to Ausculation Bilateral, NORMAL BREATHING PATTERN - Cardiovascular Exam Cardiovascular Exam: REGULAR RHYTHM, +S1, +S2 - GI/Abdominal Exam GI & Abdominal Exam: Soft, Tenderness. absent: Distended, Firm, Guarding, Rigid , Rebound Additional comments: - colostomy in place- liquid output - YAMILE drain - 70cc/24hrs - NGT in place- minimal output - Exam Additional comments: urine output - 1250/12hrs - Extremities Exam Extremities Exam: absent: Pedal Edema, Tenderness - Neurological Exam Neurological Exam: Alert, Awake - Skin Skin Exam: Dry, Intact, Normal Color, Warm Assessment and Plan - Assessment and Plan (Free Text) Assessment: 21F s/p ex-lap, partial colon resection, end colostomy, POD#2 - pain control DC [employer], continue antibiotics - strict Is:Os, continue IVFs - monitor drain/monitor ostomy - Q1hr incentive spirometer - f/u labs - re-evaluate for NGT removal Discussed with Dr. Sonja Cifuentes, PGY1 <Crispin Casillas - Last Filed: 12/20/16 12:52> Subjective - Date & Time of Evaluation Time of Evaluation: 12:15 - Subjective Subjective: Patient was seen and examined at the bedside. Agree with resident's note above Objective - Vital Signs/Intake and Output Vital Signs (last 24 hours): Temp Pulse Resp BP Pulse Ox 99.1 F 119 H 22 129/69 100 12/20/16 04:00 12/20/16 04:00 12/20/16 04:00 12/20/16 04:00 12/20/16 04:00 - Medications Medications: Current Medications Acetaminophen (Tylenol 325mg Tab) 650 mg PO Q4 PRN PRN Reason: Fever >100.4 F Benzocaine/Menthol (Cepacol Sore Throat) 1 lissy PO Q6H PRN PRN Reason: Sore Throat Last Admin: 12/20/16 09:08 Dose: 1 lissy Enoxaparin Sodium (Lovenox) 40 mg SC DAILY [facility] PRN Reason: Protocol Last Admin: 12/20/16 09:04 Dose: 40 mg Hydromorphone HCl (Dilaudid) 0.5 mg IVP Q4 PRN PRN Reason: Pain, moderate (4-7) Lactated Ringer's (Lactated Ringer's) 1,000 mls @ 120 mls/hr IV .Q8H20M [facility] Piperacillin Sod/Tazobactam (Sod 3.375 gm/ Sodium Chloride) 100 mls @ 100 mls/ hr IVPB Q6 [facility] Last Admin: 12/20/16 04:55 Dose: 100 mls/hr Potassium Chloride/Dextrose (Potassium Chl 20 Meq In D5w) 1,000 mls @ 80 mls/ hr IV .[id number] [facility] Pantoprazole Sodium (Protonix Inj) 40 mg IVP DAILY [facility] Last Admin: 12/20/16 09:08 Dose: 40 mg - Labs Labs: 12/20/16 05:30 12/20/16 05:30 PT 14.4 Seconds (9.8-13.1) H 12/18/16 15:30 INR 1.3 (0.9-1.2) H 12/18/16 15:30 APTT 26.7 Seconds (25.6-37.1) 12/18/16 15:30 Assessment and Plan - Assessment and Plan (Free Text) Plan: - Removed NG tube - Start sips of water - Pain control - Continue Zosyn - IV fluids - Insentive spirometry - DVT ppx - Repeat labs in am - Will follow
[2016-12-20] MEDS: Enoxaparin 40 mg Syringe SC SCH (09:04)
[2016-12-20] MEDS: Benzocaine/Menthol (Cepacol) Lozenge PO PRN (09:08)
--- NOTE | 2016-12-20 10:49 | CP.PCM.PN ---
Subjective - Date & Time of Evaluation Date of Evaluation: 12/20/16 Time of Evaluation: 09:00 - Subjective Subjective: Pt is sitted on a chair feels better however wants NGT out no fevr no CP no SOB abd pain controlled with pain med noted serosanguinous fluid in both Colostomy bag and also on the YAMILE drain minimal bilious drainage from the NGT Objective - Vital Signs/Intake and Output Vital Signs (last 24 hours): Temp Pulse Resp BP Pulse Ox 99.1 F 119 H 22 129/69 100 12/20/16 04:00 12/20/16 04:00 12/20/16 04:00 12/20/16 04:00 12/20/16 04:00 - Medications Medications: Current Medications Acetaminophen (Tylenol 325mg Tab) 650 mg PO Q4 PRN PRN Reason: Fever >100.4 F Benzocaine/Menthol (Cepacol Sore Throat) 1 lissy PO Q6H PRN PRN Reason: Sore Throat Last Admin: 12/20/16 09:08 Dose: 1 lissy Enoxaparin Sodium (Lovenox) 40 mg SC DAILY [facility] PRN Reason: Protocol Last Admin: 12/20/16 09:04 Dose: 40 mg Hydromorphone HCl (Dilaudid) 0.5 mg IVP Q4 PRN PRN Reason: Pain, moderate (4-7) Lactated Ringer's (Lactated Ringer's) 1,000 mls @ 120 mls/hr IV .Q8H20M [facility] Piperacillin Sod/Tazobactam (Sod 3.375 gm/ Sodium Chloride) 100 mls @ 100 mls/ hr IVPB Q6 [facility] Last Admin: 12/20/16 04:55 Dose: 100 mls/hr Potassium Chloride/Dextrose (Potassium Chl 20 Meq In D5w) 1,000 mls @ 80 mls/ hr IV .[id number] [facility] Pantoprazole Sodium (Protonix Inj) 40 mg IVP DAILY [facility] Last Admin: 12/20/16 09:08 Dose: 40 mg - Labs Labs: 12/20/16 05:30 12/20/16 05:30 PT 14.4 Seconds (9.8-13.1) H 12/18/16 15:30 INR 1.3 (0.9-1.2) H 12/18/16 15:30 APTT 26.7 Seconds (25.6-37.1) 12/18/16 15:30 - Constitutional Appears: No Acute Distress - Head Exam Head Exam: NORMAL INSPECTION, NORMOCEPHALIC - Eye Exam Eye Exam: EOMI, Normal appearance, PERRL Pupil Exam: NORMAL ACCOMODATION - ENT Exam ENT Exam: Mucous Membranes Moist, Normal External Ear Exam - Neck Exam Neck Exam: Full ROM. absent: Meningismus - Respiratory Exam Respiratory Exam: NORMAL BREATHING PATTERN. absent: Respiratory Distress - Cardiovascular Exam Cardiovascular Exam: Tachycardia, REGULAR RHYTHM, +S1, +S2 - GI/Abdominal Exam GI & Abdominal Exam: Distended, Tenderness, Hypoactive Bowel Sounds Additional comments: Surgical dressing intact YAMILE drain on the right Colostomy bag on the left - Extremities Exam Extremities Exam: Full ROM, Normal Capillary Refill. absent: Calf Tenderness - Back Exam Back Exam: Full ROM - Neurological Exam Neurological Exam: Alert, Awake, CN II-XII Intact, Oriented x3 Neuro motor strength exam: Left Upper Extremity: 5, Right Upper Extremity: 5, Left Lower Extremity: 5, Right Lower Extremity: 5 - Psychiatric Exam Psychiatric exam: Normal Affect, Normal Mood - Skin Skin Exam: Dry, Normal Color, Warm Assessment and Plan (1) Fecal impaction Status: Acute (2) Perforation of colon Status: Ruled-out (3) S/P partial resection of colon Status: Acute (4) S/P colostomy Status: Acute - Assessment and Plan (Free Text) Assessment: 21 y/o lady with hx of Constipation , came in bec of severe abd pain . CT of abd : fecal impaction, abd distention. Developed severe acute abdomen- underwent Explor Lap - Partial Colectomy with Colostomy. Monitored post op in ICU (1) Fecal impaction s/p Partial Colectomy and Colostomy Status: Acute ? poss Hirschsprung , await pathology cont IV Zosyn IVF hydration pt NPO Pain mgt YAMILE drain in place Colostomy on the left abd NGT with minimal bilious material (1) Perforation of colon ruled out Status: Acute Surgery consulted- Dr Casillas - S/p Explor Lap , Partial Colon Resection with Colostomy Noted distended colon with extremely large fecal impaction (3) S/P partial resection of colon 12/19 Status: Acute (4) S/P colostomy Status: Acute DVT proph - Lovenox
[2016-12-20] MEDS: Potassium Chl 20mEq & D5W 1,000 ML IV SCH (11:00)
--- NOTE | 2016-12-20 14:43 | CARD ---
APPROVED REPORT EKG Measurement Heart [id number] <Conclusion> Sinus tachycardia Otherwise normal ECG
[2016-12-21] MEDS: Potassium Chl 20mEq & D5W 1,000 ML IV SCH (00:58)
[2016-12-21] MEDS: Piperacillin/Tazobact 3.375 GM in Sodium Chloride 0.9% 100 ML IVPB SCH ×4 (04:07→21:29)
[2016-12-21 05:39] LABS: BASO % 0.2 % (0.0-2.0); EOS # 0.1 K/uL (0.0-0.7); EOS % 0.8 % (0.0-4.0); HEMATOCRIT 31.5 % (34.0-47.0); LYMPH # 1.7 K/uL (1.0-4.3); LYMPH % 12.6 % (20.0-40.0); MEAN CELL VOLUME 88.1 fl (81.0-99.0); MEAN CORPUSCULAR HEMOGLOBIN 28.9 pg (27.0-31.0); MEAN CORPUSCULAR HGB CONC 32.8 g/dL (33.0-37.0); MEAN PLATELET VOLUME 6.9 fl (7.2-11.7); MONO # 1.2 K/uL (0.0-0.8); MONO % 8.9 % (0.0-10.0); NEUT # 10.7 K/uL (1.8-7.0); NEUT % 77.5 % (50.0-75.0); RED CELL DISTRIBUTION WIDTH 14.8 % (11.5-14.5); WHITE BLOOD COUNT 13.9 K/uL (4.8-10.8)
[2016-12-21 05:47] LABS: ALB/GLOB RATIO 0.9 (1.0-2.1); ALKALINE PHOSPHATASE 51 U/L (38-126); ALT/SGPT 31 U/L (9-52); AST/SGOT 57 U/L (14-36); BILIRUBIN,TOTAL 0.7 mg/dl (0.2-1.3); BLOOD UREA NITROGEN 4 mg/dl (7-17); CARBON DIOXIDE 28 mmol/L (22-30); CHLORIDE 102 mmol/L (98-107); GFR AFRICAN-AMERICAN > 60; GLUCOSE,RANDOM 92 mg/dL (65-105); POTASSIUM 3.6 MMOL/L (3.6-5.0); SODIUM 137 mmol/l (132-148); TOTAL PROTEIN 5.6 G/DL (6.3-8.2)
--- NOTE | 2016-12-21 07:34 | CP.PCM.PN ---
<Michelle Cummings - Last Filed: 12/21/16 11:11> Subjective - Date & Time of Evaluation Date of Evaluation: 12/21/16 Time of Evaluation: 07:00 - Subjective Subjective: General Surgery note for Dr. Casillas Pt s/e at bedside in the ICU this AM. NAEO. Afebrile, with mild tachycardia with HR in the 110-120's improved since admit. Patient reports pain but it is well controlled with current pain regimen. Denies fevers, nausea, vomiting, or any other symptoms. Patient has approximately 40cc's of of serous fluid from the ostomy overnight and 10cc's of sero-sanguinous fluid from the junior drain overnight. Objective - Vital Signs/Intake and Output Vital Signs (last 24 hours): Temp Pulse Resp BP Pulse Ox 98.9 F 115 H 18 120/65 97 12/21/16 04:00 12/21/16 06:00 12/21/16 06:00 12/21/16 06:00 12/21/16 06:00 Intake and Output: 12/21/16 12/21/16 06:59 18:59 Intake Total 840 Output Total 650 Balance 190 - Medications Medications: Current Medications Acetaminophen (Tylenol 325mg Tab) 650 mg PO Q4 PRN PRN Reason: Fever >100.4 F Benzocaine/Menthol (Cepacol Sore Throat) 1 lissy PO Q6H PRN PRN Reason: Sore Throat Last Admin: 12/20/16 09:08 Dose: 1 lissy Enoxaparin Sodium (Lovenox) 40 mg SC DAILY [facility] PRN Reason: Protocol Last Admin: 12/20/16 09:04 Dose: 40 mg Hydromorphone HCl (Dilaudid) 0.5 mg IVP Q4 PRN PRN Reason: Pain, moderate (4-7) Last Admin: 12/21/16 05:39 Dose: 0.5 mg Lactated Ringer's (Lactated Ringer's) 1,000 mls @ 120 mls/hr IV .Q8H20M [facility] Piperacillin Sod/Tazobactam (Sod 3.375 gm/ Sodium Chloride) 100 mls @ 100 mls/ hr IVPB Q6 [facility] Last Admin: 12/21/16 04:07 Dose: 100 mls/hr Potassium Chloride/Dextrose (Potassium Chl 20 Meq In D5w) 1,000 mls @ 80 mls/ hr IV .[id number] [facility] Last Admin: 12/21/16 00:58 Dose: 80 mls/hr Lactated Ringer's (Lactated Ringer's) 1,000 mls @ 125 mls/hr IV .Q8H [facility] Pantoprazole Sodium (Protonix Inj) [address] [facility] Last Admin: 12/20/16 09:08 Dose: 40 mg - Labs Labs: 12/21/16 04:30 12/21/16 04:30 PT 14.4 Seconds (9.8-13.1) H 12/18/16 15:30 INR 1.3 (0.9-1.2) H 12/18/16 15:30 APTT 26.7 Seconds (25.6-37.1) 12/18/16 15:30 - Constitutional Appears: Well, Non-toxic, No Acute Distress - Head Exam Head Exam: ATRAUMATIC, NORMOCEPHALIC - Eye Exam Eye Exam: Normal appearance. absent: Conjunctival injection, Scleral icterus - ENT Exam ENT Exam: Mucous Membranes Moist, Normal Oropharynx - Respiratory Exam Respiratory Exam: NORMAL BREATHING PATTERN. absent: Accessory Muscle Use, Respiratory Distress - Cardiovascular Exam Cardiovascular Exam: Tachycardia, REGULAR RHYTHM - GI/Abdominal Exam GI & Abdominal Exam: Distended (mildly), Soft, Tenderness (moderate tenderness to mild palpation around the incision and junior drain site) Additional comments: Colostomy pink, patent, and productive of clear serous fluid. Central surgical incision covered in dressing intact with moderate sero-sanguinous drainage. incision well approximated with juan with mild surrounding erythema but no fluctuance of active drainage/bleeding - Extremities Exam Extremities Exam: Normal Capillary Refill. absent: Calf Tenderness, Pedal Edema , Tenderness - Neurological Exam Neurological Exam: Alert, Awake, Oriented x3 - Psychiatric Exam Psychiatric exam: Normal Affect, Normal Mood - Skin Skin Exam: Dry, Normal Color, Warm Assessment and Plan - Assessment and Plan (Free Text) Assessment: 21F s/p ex-lap, partial colon resection, end colostomy, POD#3 WBC trending down Tachycardia improving Minimal output from the ostomy and junior drain Tolerating sips of water without nausea and vomiting Plan: - Advance to CLD as tolerated - pain control, continue antibiotics - strict Is:Os, Lactated ringers at 125cc/h - monitor drain/monitor ostomy - Q1hr incentive spirometer, encouraged activity with physical therapy - f/u labs Discussed and examined with Dr. Sonja Cummings, PGY1 <Crispin Casillas - Last Filed: 12/21/16 11:21> Subjective - Date & Time of Evaluation Time of Evaluation: 11:05 - Subjective Subjective: Patient was seen and examined at the bedside. Agree with resident's note above Objective - Vital Signs/Intake and Output Vital Signs (last 24 hours): Temp Pulse Resp BP Pulse Ox 98.9 F 129 H 44 H 126/76 98 12/21/16 08:00 12/21/16 08:00 12/21/16 08:00 12/21/16 08:00 12/21/16 08:00 Intake and Output: 12/21/16 12/21/16 06:59 18:59 Intake Total 840 Output Total 650 Balance 190 - Medications Medications: Current Medications Acetaminophen (Tylenol 325mg Tab) 650 mg PO Q4 PRN PRN Reason: Fever >100.4 F Benzocaine/Menthol (Cepacol Sore Throat) 1 lissy PO Q6H PRN PRN Reason: Sore Throat Last Admin: 12/20/16 09:08 Dose: 1 lissy Enoxaparin Sodium (Lovenox) 40 mg SC DAILY [facility] PRN Reason: Protocol Last Admin: 12/21/16 08:36 Dose: 40 mg Hydromorphone HCl (Dilaudid) 0.5 mg IVP Q3H PRN PRN Reason: Pain, moderate (4-7) Last Admin: 12/21/16 08:52 Dose: 0.5 mg Lactated Ringer's (Lactated Ringer's) 1,000 mls @ 120 mls/hr IV .Q8H20M [facility] Piperacillin Sod/Tazobactam (Sod 3.375 gm/ Sodium Chloride) 100 mls @ 100 mls/ hr IVPB Q6 [facility] Last Admin: 12/21/16 04:07 Dose: 100 mls/hr Lactated Ringer's (Lactated Ringer's) 1,000 mls @ 125 mls/hr IV .Q8H [facility] Pantoprazole Sodium (Protonix Inj) 40 mg IVP DAILY [facility] Last Admin: 12/21/16 08:36 Dose: 40 mg - Labs Labs: 12/21/16 04:30 12/21/16 04:30 PT 14.4 Seconds (9.8-13.1) H 12/18/16 15:30 INR 1.3 (0.9-1.2) H 12/18/16 15:30 APTT 26.7 Seconds (25.6-37.1) 12/18/16 15:30
[2016-12-21] MEDS: Lactated Ringer's 1,000 ML IV SCH ×2 (08:00→17:49)
[2016-12-21] MEDS: Enoxaparin 40 mg Syringe SC SCH (08:36)
--- NOTE | 2016-12-21 10:47 | CP.CCUPN ---
CCU Subjective - Physician Review Subjective (Free Text): Patient awake, no distress, NG tube removed, Gore removed, has been OOB, no fever, events reviewed. CCU Objective - Vital Signs / Intake & Output Vital Signs (Last 4 hours): Vital Signs Temp Pulse Resp BP Pulse Ox 12/21/16 08:00 98.9 F 129 H 44 H 126/76 98 Intake and Output (Last 8hrs): Intake & Output 12/20/16 12/21/16 12/21/16 22:59 06:59 14:59 Intake Total 840 Output Total 650 Balance 190 Intake: IV 640 Intake, Piggyback 200 Output: Gastric Amount 40 Stomach 40 Drainage 10 Right Abdomen 10 Urine 600 Urine, Voided 600 Other: # Voids Urine, Voided 1 - Physical Exam Head: Positive for: Atraumatic, Normocephalic Pupils: Positive for: PERRL Extroacular Muscles: Positive for: EOMI Conjunctiva: Positive for: Normal Mouth: Positive for: Moist Mucous Membranes Nose (External): Positive for: Atraumatic Respiratory/Chest: Positive for: Clear to Auscultation Cardiovascular: Positive for: Regular Rate and Rhythm, Normal S1, S2 Abdomen: Positive for: Other (colostomy in place) Upper Extremity: Positive for: Normal Inspection Lower Extremity: Positive for: Normal Inspection Neurological: Positive for: Speech Normal Skin: Positive for: Warm Psychiatric: Positive for: Alert, Oriented x 3 - Medications Active Medications: Active Medications Generic Name Dose Route Start Last Admin Trade Name Freq PRN Reason Stop Dose Admin Acetaminophen 650 mg 12/19/16 03:21 Tylenol 325mg Tab PO Q4 PRN Fever >100.4 F Benzocaine/Menthol 1 lissy 12/19/16 19:55 12/20/16 09:08 Cepacol Sore Throat PO 1 lissy Q6H PRN Administration Sore Throat Enoxaparin Sodium 40 mg 12/20/16 09:00 12/21/16 08:36 Lovenox SC 40 mg DAILY [facility] Administration Protocol Hydromorphone HCl 0.5 mg 12/21/16 07:36 12/21/16 08:52 Dilaudid IVP 0.5 mg Q3H PRN Administration Pain, moderate (4-7) Lactated Ringer's 1,000 mls @ 120 mls/hr 12/19/16 03:10 Lactated Ringer's IV .Q8H20M [facility] Piperacillin Sod/Tazobactam 100 mls @ 100 mls/hr 12/19/16 04:00 12/21/16 04: 07 Sod 3.375 gm/ Sodium Chloride IVPB 100 mls/hr Q6 [facility] Administration Lactated Ringer's 1,000 mls @ 125 mls/hr 12/21/16 07:45 Lactated Ringer's IV .Q8H [facility] Pantoprazole Sodium 40 mg 12/19/16 09:00 12/21/16 08:36 Protonix Inj IVP 40 mg DAILY [facility] Administration - Patient Studies Lab Studies: Microbiology Studies 12/19/16 08:50 MRSA Culture (Admit) - Final Nose MRSA NOT DETECTED 12/18/16 20:17 Urine Culture - Preliminary Urine,Catheterized No growth. Lab Studies 12/21/16 12/21/16 Range/Units 04:30 04:30 WBC 13.9 H (4.8-10.8) K/uL RBC 3.58 L (3.80-5.20) Mil/uL Hgb 10.3 L (12.0-16.0) g/dL Hct 31.5 L (34.0-47.0) % MCV 88.1 (81.0-99.0) fl MCH 28.9 (27.0-31.0) pg MCHC 32.8 L (33.0-37.0) g/dL RDW 14.8 H (11.5-14.5) % Plt Count 338 (130-400) K/uL MPV 6.9 L (7.2-11.7) fl Neut % (Auto) 77.5 H (50.0-75.0) % Lymph % (Auto) 12.6 L (20.0-40.0) % Morris % (Auto) 8.9 (0.0-10.0) % Eos % (Auto) 0.8 (0.0-4.0) % Baso % (Auto) 0.2 (0.0-2.0) % Neut # 10.7 H (1.8-7.0) K/uL Lymph # 1.7 (1.0-4.3) K/uL Morris # 1.2 H (0.0-0.8) K/uL Eos # 0.1 (0.0-0.7) K/uL Baso # 0.0 (0.0-0.2) K/uL Sodium 137 (132-148) mmol/l Potassium 3.6 (3.6-5.0) MMOL/L Chloride 102 (98-107) mmol/L Carbon Dioxide 28 (22-30) mmol/L Anion Gap 10 (10-20) BUN 4 L (7-17) mg/dl Creatinine 0.7 (0.7-1.2) mg/dL Est GFR ( Amer) > 60 Est GFR (Non-Af Amer) > 60 Random Glucose 92 (65-105) mg/dL Calcium 8.0 L (8.4-10.2) mg/dL Total Bilirubin 0.7 (0.2-1.3) mg/dl AST 57 H D (14-36) U/L ALT 31 (9-52) U/L Alkaline Phosphatase 51 (38-126) U/L Total Protein 5.6 L (6.3-8.2) G/DL Albumin 2.6 L D (3.5-5.0) g/dL Globulin 3.0 (2.2-3.9) gm/dL Albumin/Globulin Ratio 0.9 L (1.0-2.1) Laboratory Results - last 24 hr 12/21/16 12/21/16 04:30 04:30 WBC 13.9 H RBC 3.58 L Hgb 10.3 L Hct 31.5 L MCV 88.1 MCH 28.9 MCHC 32.8 L RDW 14.8 H Plt Count 338 MPV 6.9 L Neut % (Auto) 77.5 H Lymph % (Auto) 12.6 L Morris % (Auto) 8.9 Eos % (Auto) 0.8 Baso % (Auto) 0.2 Neut # 10.7 H Lymph # 1.7 Morris # 1.2 H Eos # 0.1 Baso # 0.0 Sodium 137 Potassium 3.6 Chloride 102 Carbon Dioxide 28 Anion Gap 10 BUN 4 L Creatinine 0.7 Est GFR ( Amer) > 60 Est GFR (Non-Af Amer) > 60 Random Glucose 92 Calcium 8.0 L Total Bilirubin 0.7 AST 57 H D ALT 31 Alkaline Phosphatase 51 Total Protein 5.6 L Albumin 2.6 L D Globulin 3.0 Albumin/Globulin Ratio 0.9 L Review of Systems - Review of Systems All systems: reviewed and no additional remarkable complaints except Critical Care Progress Note - Ventilator Checklist Head of Bed 30 Degrees: Yes PUD Prophalyxis: Yes DVT Prophylaxis: Yes - Extremities/Vascular Does the Patient have a Central Venous Catheter?: No Does the Patient have a Gore Catheter?: No - Prophylaxis GI Prophylaxis GI: PPI - Prophylaxis DVT Prophylaxis DVT: Lovenox, SCDs Assessment/Plan - Assessment and Plan (Free Text) Assessment: Chronic constipation, abdominal pain, colonic distension, fecal impaction s/p surgery with partial colon resection and colostomy, h/o asthma Plan: -See orders - Continue meds - Pain control - Surgery follow up - GI follow up - IV fluids - incentive spirometry -Stable for regular post-op med/surg bed.
[2016-12-21] MEDS ORDERED: Pneumococcal 23-Valent Vaccine IM ONE (13:08)
[2016-12-21] MEDS ORDERED: DiphenhydrAMINE 50 mg/ml Inj IVP STA (17:24)
--- NOTE | 2016-12-21 17:47 | CP.PCM.PN ---
Subjective - Date & Time of Evaluation Date of Evaluation: 12/21/16 Time of Evaluation: 17:30 - Subjective Subjective: Patient seen and evaluated bedside. Tachycardic with HR ranging from 110-120 , complaining of pain to abdomen.Tolerating liquid diet. Denies any SOB or CP NGT and guillen removed BP stable 122/84 afebrile YAMILE drain to RLQ with 790 ml sero sanguinous output last 12 hours Midline surgical incision with juan in place with 2 areas of dehiscence in the lower portion of surgical incision. Colostomy to LLQ with some serous output WBC 13.9 hgb 10.3 Objective - Vital Signs/Intake and Output Vital Signs (last 24 hours): Temp Pulse Resp BP Pulse Ox 99.5 F 123 H 21 122/82 100 12/21/16 16:01 12/21/16 16:01 12/21/16 16:01 12/21/16 16:01 12/21/16 16:01 Intake and Output: 12/21/16 12/21/16 06:59 18:59 Intake Total 840 Output Total 650 Balance 190 - Medications Medications: Current Medications Acetaminophen (Tylenol 325mg Tab) 650 mg PO Q4 PRN PRN Reason: Fever >100.4 F Benzocaine/Menthol (Cepacol Sore Throat) 1 lissy PO Q6H PRN PRN Reason: Sore Throat Last Admin: 12/20/16 09:08 Dose: 1 lissy Enoxaparin Sodium (Lovenox) 40 mg SC DAILY [facility] PRN Reason: Protocol Last Admin: 12/21/16 08:36 Dose: 40 mg Hydromorphone HCl (Dilaudid) 0.5 mg IVP Q3H PRN PRN Reason: Pain, moderate (4-7) Last Admin: 12/21/16 17:38 Dose: 0.5 mg Piperacillin Sod/Tazobactam (Sod 3.375 gm/ Sodium Chloride) 100 mls @ 100 mls/ hr IVPB Q6 [facility] Last Admin: 12/21/16 04:07 Dose: 100 mls/hr Lactated Ringer's (Lactated Ringer's) 1,000 mls @ 125 mls/hr IV .Q8H [facility] Pantoprazole Sodium (Protonix Inj) 40 mg IVP DAILY [facility] Last Admin: 12/21/16 08:36 Dose: 40 mg - Labs Labs: 12/21/16 04:30 12/21/16 04:30 PT 14.4 Seconds (9.8-13.1) H 12/18/16 15:30 INR 1.3 (0.9-1.2) H 12/18/16 15:30 APTT 26.7 Seconds (25.6-37.1) 12/18/16 15:30 - Constitutional Appears: Non-toxic, No Acute Distress - Head Exam Head Exam: ATRAUMATIC, NORMAL INSPECTION, NORMOCEPHALIC - Eye Exam Eye Exam: EOMI, Normal appearance, PERRL Pupil Exam: NORMAL ACCOMODATION - ENT Exam ENT Exam: Mucous Membranes Moist, Normal Exam - Neck Exam Neck Exam: Full ROM, Normal Inspection - Respiratory Exam Respiratory Exam: Clear to Ausculation Bilateral, NORMAL BREATHING PATTERN. absent: Rales, Rhonchi, Wheezes - Cardiovascular Exam Cardiovascular Exam: Tachycardia, +S1, +S2. absent: JVD - GI/Abdominal Exam GI & Abdominal Exam: Soft, Tenderness, Normal Bowel Sounds. absent: Distended, Mass Additional comments: midline surgical incisi on with juan in place 2 areas of dehiscence noted to lower portion of incision Colostomy to LLQ YAMILE drain to RLQ abdominal wall edema to lower abdominal wall - Rectal Exam Rectal Exam: Deferred - Extremities Exam Extremities Exam: Full ROM, Normal Capillary Refill, Normal Inspection. absent : Pedal Edema - Back Exam Back Exam: NORMAL INSPECTION - Neurological Exam Neurological Exam: Alert, Awake, CN II-XII Intact, Oriented x3 - Psychiatric Exam Psychiatric exam: Anxious, Normal Affect, Normal Mood - Skin Skin Exam: Dry, Normal Color, Warm Assessment and Plan - Assessment and Plan (Free Text) Assessment: 21 y/o lady with hx of Constipation , came in bec of severe abd pain . CT of abd showed fecal impaction and abd distention. Developed severe acute abdomen- underwent Explor Lap and underwent Partial Colectomy with Colostomy. Currently being monitored in ICU, NGT removed and tolerating liquid diet Tachycardic . 1. Fecal impaction s/p Partial Colectomy and Colostomy 12/19 Acute ? poss Hirschsprung , await pathology s/p NGT removal. tolerating liquid diet Started ambulation OOb to chair cont IV Zosyn, pain management YAMILE drain to RLQ with 70 ml output last 12 hours Colostomy to the left abdominal with minimal serous output Surgery following closely Few of the juan to lower portion of surgical incision coming off. Maintain bed rest for now until surgery re evaluates patient 2. Sinus Tachycardia unclear etiology Continue pain management and IVF Check TSH 3. Anemia of acute blood loss during surgery Hgb dropped from 14-- 10 Monitor for now 4.Prophylaxis Lovenox Protonix
[2016-12-22] MEDS: Lactated Ringer's 1,000 ML IV SCH ×2 (01:12→16:55)
[2016-12-22] MEDS: Piperacillin/Tazobact 3.375 GM in Sodium Chloride 0.9% 100 ML IVPB SCH ×4 (04:30→21:33)
[2016-12-22 05:14] LABS: MEAN CELL VOLUME 88.3 fl (81.0-99.0); MEAN CORPUSCULAR HEMOGLOBIN 29.2 pg (27.0-31.0); MEAN CORPUSCULAR HGB CONC 33.1 g/dL (33.0-37.0); RED CELL DISTRIBUTION WIDTH 14.3 % (11.5-14.5)
[2016-12-22 05:28] LABS: BLOOD UREA NITROGEN 3 mg/dl (7-17); CALCIUM 8.1 mg/dL (8.4-10.2); CARBON DIOXIDE 28 mmol/L (22-30); CHLORIDE 103 mmol/L (98-107); GFR AFRICAN-AMERICAN > 60; GLUCOSE,RANDOM 91 mg/dL (65-105); POTASSIUM 3.6 MMOL/L (3.6-5.0); SODIUM 138 mmol/l (132-148)
[2016-12-22 05:53] LABS: THYROID STIMULATING HORMONE 2.41 mIU/ML (0.46-4.68)
--- NOTE | 2016-12-22 08:11 | CP.PCM.PN ---
Subjective - Date & Time of Evaluation Date of Evaluation: 12/22/16 Time of Evaluation: 07:00 - Subjective Subjective: General Surgery note for Dr. Casillas Patient seen and examined at bedside this AM in the ICU. LASHAWN. Patient reports that pain is present but improved from yesterday and well tolerated with pain regimen. Patient denies any nausea, vomiting, fevers, chills, or SOB and tolerated CLD yesterday. Objective - Vital Signs/Intake and Output Vital Signs (last 24 hours): Temp Pulse Resp BP Pulse Ox 98.3 F 99 H 18 124/71 98 12/22/16 04:00 12/22/16 06:00 12/22/16 06:00 12/22/16 06:00 12/22/16 06:00 Intake and Output: 12/22/16 12/22/16 06:59 18:59 Intake Total 1565 Output Total 710 Balance 855 - Medications Medications: Current Medications Acetaminophen (Tylenol 325mg Tab) 650 mg PO Q4 PRN PRN Reason: Fever >100.4 F Benzocaine/Menthol (Cepacol Sore Throat) 1 lissy PO Q6H PRN PRN Reason: Sore Throat Last Admin: 12/20/16 09:08 Dose: 1 lissy Enoxaparin Sodium (Lovenox) 40 mg SC DAILY [facility] PRN Reason: Protocol Last Admin: 12/21/16 08:36 Dose: 40 mg Hydromorphone HCl (Dilaudid) 0.5 mg IVP Q3H PRN PRN Reason: Pain, moderate (4-7) Last Admin: 12/22/16 04:12 Dose: 0.5 mg Piperacillin Sod/Tazobactam (Sod 3.375 gm/ Sodium Chloride) 100 mls @ 100 mls/ hr IVPB Q6 [facility] Last Admin: 12/22/16 04:30 Dose: 100 mls/hr Lactated Ringer's (Lactated Ringer's) 1,000 mls @ 125 mls/hr IV .Q8H [facility] Stop: 12/22/16 19:00 Last Admin: 12/22/16 01:12 Dose: 125 mls/hr Pantoprazole Sodium (Protonix Inj) 40 mg IVP DAILY [facility] Last Admin: 12/21/16 08:36 Dose: 40 mg - Labs Labs: 12/22/16 04:30 12/22/16 04:30 PT 14.4 Seconds (9.8-13.1) H 12/18/16 15:30 INR 1.3 (0.9-1.2) H 12/18/16 15:30 APTT 26.7 Seconds (25.6-37.1) 12/18/16 15:30 - Constitutional Appears: Well, Non-toxic, No Acute Distress - Head Exam Head Exam: ATRAUMATIC, NORMOCEPHALIC - Eye Exam Eye Exam: Normal appearance. absent: Conjunctival injection, Scleral icterus - ENT Exam ENT Exam: Mucous Membranes Moist, Normal Oropharynx - Respiratory Exam Respiratory Exam: NORMAL BREATHING PATTERN. absent: Accessory Muscle Use, Respiratory Distress - Cardiovascular Exam Cardiovascular Exam: Tachycardia, REGULAR RHYTHM - GI/Abdominal Exam GI & Abdominal Exam: Soft, Tenderness (Tenderness around the incision and the drain site). absent: Distended Additional comments: Central surgical incision with dressing intact with minimal sero-sanguinous drainage in the inferior pole. Skin edges well approximated by juan except for a 1cm portion in the inferior pole with a small amount of subcutaneous tissue visible. No active bleeding, drainage, or surrounding erythema/ fluctuance. Brody drain in place in the RLQ with sero-sanguionous output. 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 Sonja Cummings, PGY1
[2016-12-22] MEDS: Enoxaparin 40 mg Syringe SC SCH (08:24)
--- NOTE | 2016-12-22 10:17 | CP.PCM.PN ---
Subjective - Date & Time of Evaluation Date of Evaluation: 12/22/16 Time of Evaluation: 10:15 - Subjective Subjective: Patient seen and evaluated bedside. Sitting in chair in NAD, feeling better, pain better controlled today.Still tachycardic with HR ranging from 110-99 , Tolerating liquid diet. Denies any SOB or CP BP stable 126/61 afebrile YAMILE drain to RLQ with 90 ml sero sanguinous output last 12 hours Midline surgical incision with juan in place healing well Colostomy to LLQ with 20 ml serous output WBC 11 K hgb 11 Objective - Vital Signs/Intake and Output Vital Signs (last 24 hours): Temp Pulse Resp BP Pulse Ox 99.6 F 107 H 30 H 125/76 98 12/22/16 08:10 12/22/16 08:10 12/22/16 08:10 12/22/16 08:10 12/22/16 08:10 Intake and Output: 12/22/16 12/22/16 06:59 18:59 Intake Total 1565 350 Output Total 710 Balance 855 350 - Medications Medications: Current Medications Acetaminophen (Tylenol 325mg Tab) 650 mg PO Q4 PRN PRN Reason: Fever >100.4 F Benzocaine/Menthol (Cepacol Sore Throat) 1 lissy PO Q6H PRN PRN Reason: Sore Throat Last Admin: 12/20/16 09:08 Dose: 1 lissy Enoxaparin Sodium (Lovenox) 40 mg SC DAILY [facility] PRN Reason: Protocol Last Admin: 12/22/16 08:24 Dose: 40 mg Hydromorphone HCl (Dilaudid) 0.5 mg IVP Q3H PRN PRN Reason: Pain, moderate (4-7) Last Admin: 12/22/16 08:22 Dose: 0.5 mg Piperacillin Sod/Tazobactam (Sod 3.375 gm/ Sodium Chloride) 100 mls @ 100 mls/ hr IVPB Q6 [facility] Last Admin: 12/22/16 04:30 Dose: 100 mls/hr Lactated Ringer's (Lactated Ringer's) 1,000 mls @ 125 mls/hr IV .Q8H [facility] Stop: 12/22/16 19:00 Last Admin: 12/22/16 01:12 Dose: 125 mls/hr Pantoprazole Sodium (Protonix Inj) 40 mg IVP DAILY [facility] Last Admin: 12/21/16 08:36 Dose: 40 mg - Labs Labs: 12/22/16 04:30 12/22/16 04:30 PT 14.4 Seconds (9.8-13.1) H 12/18/16 15:30 INR 1.3 (0.9-1.2) H 12/18/16 15:30 APTT 26.7 Seconds (25.6-37.1) 12/18/16 15:30 - Constitutional Appears: Non-toxic, No Acute Distress - Head Exam Head Exam: ATRAUMATIC, NORMAL INSPECTION, NORMOCEPHALIC - Eye Exam Eye Exam: EOMI, Normal appearance, PERRL Pupil Exam: NORMAL ACCOMODATION - ENT Exam ENT Exam: Mucous Membranes Moist, Normal Exam - Neck Exam Neck Exam: Full ROM, Normal Inspection - Respiratory Exam Respiratory Exam: Clear to Ausculation Bilateral, NORMAL BREATHING PATTERN. absent: Rales, Rhonchi, Wheezes - Cardiovascular Exam Cardiovascular Exam: Tachycardia. absent: JVD - GI/Abdominal Exam GI & Abdominal Exam: Soft, Normal Bowel Sounds. absent: Distended, Guarding, Tenderness, Rebound Additional comments: LLQ colostomy RLQ YAMILE drain Midline surgical incision with juan in place - Rectal Exam Rectal Exam: Deferred - Extremities Exam Extremities Exam: Full ROM, Normal Capillary Refill, Normal Inspection. absent : Calf Tenderness, Pedal Edema - Back Exam Back Exam: NORMAL INSPECTION - Neurological Exam Neurological Exam: Alert, Awake, CN II-XII Intact, Oriented x3 - Psychiatric Exam Psychiatric exam: Normal Affect, Normal Mood - Skin Skin Exam: Dry, Intact, Normal Color, Warm Assessment and Plan - Assessment and Plan (Free Text) Assessment: 21 y/o lady with hx of Constipation , came in bec of severe abd pain . CT of abd showed fecal impaction and abd distention. Developed severe acute abdomen- underwent Explor Lap and underwent Partial Colectomy with Colostomy. Currently being monitored in ICU, NGT removed and tolerating liquid diet Tachycardic . 1. Fecal impaction s/p Partial Colectomy and Colostomy 12/19 Acute ? poss Hirschsprung , await pathology. patient will need rectal biopsy to rule out Hirschprung before trying to reverse colostomy tolerating liquid diet Promote ambulation and OOb to chair cont IV Zosyn, pain management YAMILE drain to RLQ with 90 ml output last 12 hours Colostomy to the left abdominal with 20 ml serous output Surgery following closely may downgrade to telemetry 2. Sinus Tachycardia unclear etiology Continue pain management and IVF TSH -wnl 3. Anemia of acute blood loss during surgery Hgb dropped from 14-- 10 Monitor for now 4.Prophylaxis Lovenox Protonix
[2016-12-22] MEDS ORDERED: Potassium Chloride 20 mEq ER Tab PO ONE (11:15)
--- NOTE | 2016-12-22 11:51 | RAD ---
PROCEDURE: CHEST RADIOGRAPH, 1 VIEW HISTORY: tachycardia COMPARISON: None available. FINDINGS: LUNGS: Clear. PLEURA: No pneumothorax or pleural fluid seen. CARDIOVASCULAR: Normal. OSSEOUS STRUCTURES: No significant abnormalities. VISUALIZED UPPER ABDOMEN: Normal. OTHER FINDINGS: None. IMPRESSION: No active disease.
--- NOTE | 2016-12-22 13:03 | CP.CCUPN ---
CCU Objective - Vital Signs / Intake & Output Vital Signs (Last 4 hours): Vital Signs Temp Pulse Resp BP Pulse Ox 12/22/16 12:32 99.8 F H 109 H 22 118/77 100 12/22/16 10:00 101 H 21 125/65 100 Intake and Output (Last 8hrs): Intake & Output 12/21/16 12/22/16 12/22/16 22:59 06:59 14:59 Intake Total 1565 1000 Output Total 1470 710 Balance -0337 199 5544 Intake: IV 1125 500 Intake, Piggyback 200 100 Oral 240 400 Output: Gastric Amount 20 Stomach 20 Drainage 70 90 Right Abdomen 70 90 Urine 1400 600 Urine, Voided 1400 600 Other: # Voids Urine, Voided 3 1 1 - Physical Exam Head: Positive for: Atraumatic, Normocephalic Pupils: Positive for: PERRL Extroacular Muscles: Positive for: EOMI Conjunctiva: Positive for: Normal Mouth: Positive for: Moist Mucous Membranes Nose (External): Positive for: Atraumatic Respiratory/Chest: Positive for: Clear to Auscultation Cardiovascular: Positive for: Regular Rate and Rhythm, Normal S1, S2 Abdomen: Positive for: Other (colostomy in place) Upper Extremity: Positive for: Normal Inspection Lower Extremity: Positive for: Normal Inspection Neurological: Positive for: Speech Normal Skin: Positive for: Warm Psychiatric: Positive for: Alert, Oriented x 3 - Medications Active Medications: Active Medications Generic Name Dose Route Start Last Admin Trade Name Freq PRN Reason Stop Dose Admin Acetaminophen 650 mg 12/19/16 03:21 Tylenol 325mg Tab PO Q4 PRN Fever >100.4 F Benzocaine/Menthol 1 lissy 12/19/16 19:55 12/20/16 09:08 Cepacol Sore Throat PO 1 lissy Q6H PRN Administration Sore Throat Enoxaparin Sodium 40 mg 12/20/16 09:00 12/22/16 08:24 Lovenox SC 40 mg DAILY [facility] Administration Protocol Hydromorphone HCl 0.5 mg 12/21/16 07:36 12/22/16 12:16 Dilaudid IVP 0.5 mg Q3H PRN Administration Pain, moderate (4-7) Piperacillin Sod/Tazobactam 100 mls @ 100 mls/hr 12/19/16 04:00 12/22/16 09: 35 Sod 3.375 gm/ Sodium Chloride IVPB 100 mls/hr Q6 [facility] Administration Lactated Ringer's 1,000 mls @ 125 mls/hr 12/21/16 07:45 12/22/16 01:12 Lactated Ringer's IV 12/22/16 19:00 125 mls/hr .Q8H [facility] Administration Pantoprazole Sodium 40 mg 12/19/16 09:00 12/22/16 09:35 Protonix Inj IVP 40 mg DAILY [facility] Administration - Patient Studies Lab Studies: Lab Studies 12/22/16 12/22/16 12/22/16 Range/Units 11:21 04:30 04:30 WBC 11.0 H (4.8-10.8) K/uL RBC 3.51 L (3.80-5.20) Mil/uL Hgb 10.3 L (12.0-16.0) g/dL Hct 31.0 L (34.0-47.0) % MCV 88.3 (81.0-99.0) fl MCH 29.2 (27.0-31.0) pg MCHC 33.1 (33.0-37.0) g/dL RDW 14.3 (11.5-14.5) % Plt Count 369 (130-400) K/uL Sodium 138 (132-148) mmol/l Potassium 3.6 (3.6-5.0) MMOL/L Chloride 103 (98-107) mmol/L Carbon Dioxide 28 (22-30) mmol/L Anion Gap 11 (10-20) BUN 3 L (7-17) mg/dl Creatinine 0.6 L (0.7-1.2) mg/dL Est GFR ( Amer) > 60 Est GFR (Non-Af Amer) > 60 Random Glucose 91 (65-105) mg/dL Calcium 8.1 L (8.4-10.2) mg/dL Magnesium 2.0 (1.6-2.3) MG/DL TSH 3rd Generation 2.41 (0.46-4.68) mIU/ML Stool Leukocytes, Qual (NEGATIVE) 12/18/16 Range/Units Unknown WBC (4.8-10.8) K/uL RBC (3.80-5.20) Mil/uL Hgb (12.0-16.0) g/dL Hct (34.0-47.0) % MCV (81.0-99.0) fl MCH (27.0-31.0) pg MCHC (33.0-37.0) g/dL RDW (11.5-14.5) % Plt Count (130-400) K/uL Sodium (132-148) mmol/l Potassium (3.6-5.0) MMOL/L Chloride (98-107) mmol/L Carbon Dioxide (22-30) mmol/L Anion Gap (10-20) BUN (7-17) mg/dl Creatinine (0.7-1.2) mg/dL Est GFR ( Amer) Est GFR (Non-Af Amer) Random Glucose (65-105) mg/dL Calcium (8.4-10.2) mg/dL Magnesium (1.6-2.3) MG/DL TSH 3rd Generation (0.46-4.68) mIU/ML Stool Leukocytes, Qual Negative (NEGATIVE) Laboratory Results - last 24 hr 12/18/16 12/22/16 12/22/16 Unknown 04:30 04:30 WBC 11.0 H RBC 3.51 L Hgb 10.3 L Hct 31.0 L MCV 88.3 MCH 29.2 MCHC 33.1 RDW 14.3 Plt Count 369 Sodium 138 Potassium 3.6 Chloride 103 Carbon Dioxide 28 Anion Gap 11 BUN 3 L Creatinine 0.6 L Est GFR ( Amer) > 60 Est GFR (Non-Af Amer) > 60 Random Glucose 91 Calcium 8.1 L Magnesium TSH 3rd Generation 2.41 Stool Leukocytes, Qual Negative 12/22/16 11:21 WBC RBC Hgb Hct MCV MCH MCHC RDW Plt Count Sodium Potassium Chloride Carbon Dioxide Anion Gap BUN Creatinine Est GFR ( Amer) Est GFR (Non-Af Amer) Random Glucose Calcium Magnesium 2.0 TSH 3rd Generation Stool Leukocytes, Qual Critical Care Progress Note - Nutrition Nutrition: Nutrition Category Date Time Status Regular Diet [DIET] Diets 12/22/16 Lunch Active
[2016-12-23] MEDS: Piperacillin/Tazobact 3.375 GM in Sodium Chloride 0.9% 100 ML IVPB SCH ×4 (03:57→22:04)
[2016-12-23 06:47] LABS: HEMATOCRIT 33.1 % (34.0-47.0); MEAN CELL VOLUME 88.2 fl (81.0-99.0); MEAN CORPUSCULAR HEMOGLOBIN 29.2 pg (27.0-31.0); MEAN CORPUSCULAR HGB CONC 33.1 g/dL (33.0-37.0); RED CELL DISTRIBUTION WIDTH 14.5 % (11.5-14.5); WHITE BLOOD COUNT 8.8 K/uL (4.8-10.8)
[2016-12-23 07:07] LABS: BLOOD UREA NITROGEN 3 mg/dl (7-17); CALCIUM 8.1 mg/dL (8.4-10.2); CARBON DIOXIDE 26 mmol/L (22-30); CHLORIDE 104 mmol/L (98-107); GFR AFRICAN-AMERICAN > 60; GLUCOSE,RANDOM 114 mg/dL (65-105); POTASSIUM 3.6 MMOL/L (3.6-5.0); SODIUM 139 mmol/l (132-148)
--- NOTE | 2016-12-23 07:47 | CP.PCM.PN ---
Subjective - Date & Time of Evaluation Date of Evaluation: 12/23/16 Time of Evaluation: 07:00 - Subjective Subjective: Patient seen and examined this morning. Reports tolerating diet. No stool output yet, however ostomy bag w/ bowel sweat. Patient reports dysuria. Denies fever/chills. YAMILE drain output 145cc/24hrs, serosanguinous. Objective - Vital Signs/Intake and Output Vital Signs (last 24 hours): Temp Pulse Resp BP Pulse Ox 97.8 F 106 H 18 107/70 97 12/23/16 05:19 12/23/16 05:19 12/23/16 05:19 12/23/16 05:19 12/23/16 05:19 Intake and Output: 12/23/16 12/23/16 06:59 18:59 Intake Total 1940 Output Total 30 Balance 1910 - Medications Medications: Current Medications Acetaminophen (Tylenol 325mg Tab) 650 mg PO Q4 PRN PRN Reason: Fever >100.4 F Benzocaine/Menthol (Cepacol Sore Throat) 1 lissy PO Q6H PRN PRN Reason: Sore Throat Last Admin: 12/20/16 09:08 Dose: 1 lissy Enoxaparin Sodium (Lovenox) 40 mg SC DAILY [facility] PRN Reason: Protocol Last Admin: 12/22/16 08:24 Dose: 40 mg Hydromorphone HCl (Dilaudid) 0.5 mg IVP Q3H PRN PRN Reason: Pain, moderate (4-7) Last Admin: 12/23/16 03:55 Dose: 0.5 mg Piperacillin Sod/Tazobactam (Sod 3.375 gm/ Sodium Chloride) 100 mls @ 100 mls/ hr IVPB Q6 [facility] Last Admin: 12/23/16 03:57 Dose: 100 mls/hr Pantoprazole Sodium (Protonix Inj) 40 mg IVP DAILY [facility] Last Admin: 12/22/16 09:35 Dose: 40 mg - Labs Labs: 12/23/16 04:45 12/23/16 04:45 PT 14.4 Seconds (9.8-13.1) H 12/18/16 15:30 INR 1.3 (0.9-1.2) H 12/18/16 15:30 APTT 26.7 Seconds (25.6-37.1) 12/18/16 15:30 - Constitutional Appears: No Acute Distress - Head Exam Head Exam: NORMOCEPHALIC - Eye Exam Eye Exam: Normal appearance - ENT Exam ENT Exam: Mucous Membranes Moist - Respiratory Exam Respiratory Exam: NORMAL BREATHING PATTERN - Cardiovascular Exam Cardiovascular Exam: +S1, +S2 - GI/Abdominal Exam GI & Abdominal Exam: Soft, Tenderness. 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 Casillas
--- NOTE | 2016-12-23 07:50 | CP.PCM.PN ---
Subjective - Date & Time of Evaluation Date of Evaluation: 12/23/16 Time of Evaluation: 12:00 - Subjective Subjective: Patient seen and examined . Feeling better. Hemodynamically stable, afebrile, tachycardic with HR ranging 96-107. Tolerating regular diet.Passing flatus through colostomy, with serous fluid output from colostomy YAMILE drain to RLQ with 145 ml output last 12 hours Ambulating in unit and feeling slightly dyspneic, denies chest pain Objective - Vital Signs/Intake and Output Vital Signs (last 24 hours): Temp Pulse Resp BP Pulse Ox 97.8 F 106 H 18 107/70 97 12/23/16 05:19 12/23/16 05:19 12/23/16 05:19 12/23/16 05:19 12/23/16 05:19 Intake and Output: 12/23/16 12/23/16 06:59 18:59 Intake Total 1940 Output Total 30 Balance 1910 - Medications Medications: Current Medications Acetaminophen (Tylenol 325mg Tab) 650 mg PO Q4 PRN PRN Reason: Fever >100.4 F Benzocaine/Menthol (Cepacol Sore Throat) 1 lissy PO Q6H PRN PRN Reason: Sore Throat Last Admin: 12/20/16 09:08 Dose: 1 lissy Enoxaparin Sodium (Lovenox) 40 mg SC DAILY [facility] PRN Reason: Protocol Last Admin: 12/22/16 08:24 Dose: 40 mg Hydromorphone HCl (Dilaudid) 0.5 mg IVP Q3H PRN PRN Reason: Pain, moderate (4-7) Last Admin: 12/23/16 03:55 Dose: 0.5 mg Piperacillin Sod/Tazobactam (Sod 3.375 gm/ Sodium Chloride) 100 mls @ 100 mls/ hr IVPB Q6 [facility] Last Admin: 12/23/16 03:57 Dose: 100 mls/hr Pantoprazole Sodium (Protonix Inj) 40 mg IVP DAILY [facility] Last Admin: 12/22/16 09:35 Dose: 40 mg - Labs Labs: 12/23/16 04:45 12/23/16 04:45 PT 14.4 Seconds (9.8-13.1) H 12/18/16 15:30 INR 1.3 (0.9-1.2) H 12/18/16 15:30 APTT 26.7 Seconds (25.6-37.1) 12/18/16 15:30 - Constitutional Appears: Non-toxic, No Acute Distress - Head Exam Head Exam: ATRAUMATIC, NORMAL INSPECTION, NORMOCEPHALIC - Eye Exam Eye Exam: EOMI, Normal appearance, PERRL Pupil Exam: NORMAL ACCOMODATION - ENT Exam ENT Exam: Mucous Membranes Moist, Normal Exam - Neck Exam Neck Exam: Full ROM, Normal Inspection - Respiratory Exam Respiratory Exam: Clear to Ausculation Bilateral, NORMAL BREATHING PATTERN. absent: Rales, Rhonchi, Wheezes, Respiratory Distress - Cardiovascular Exam Cardiovascular Exam: Tachycardia, +S1, +S2. absent: JVD - GI/Abdominal Exam GI & Abdominal Exam: Soft. absent: Distended, Guarding, Tenderness, Rebound Additional comments: midline surgical incision with juan in place healing well YAMILE drain to RLQ with sero sanguinous output Colostomy to LLQ with serous output - Rectal Exam Rectal Exam: Deferred - Extremities Exam Extremities Exam: Full ROM, Normal Capillary Refill, Normal Inspection. absent : Calf Tenderness, Pedal Edema - Back Exam Back Exam: NORMAL INSPECTION - Neurological Exam Neurological Exam: Alert, Awake, CN II-XII Intact, Normal Gait, Oriented x3 - Psychiatric Exam Psychiatric exam: Normal Affect, Normal Mood - Skin Skin Exam: Dry, Intact, Normal Color, Warm Assessment and Plan - Assessment and Plan (Free Text) Assessment: 21 y/o lady with hx of Constipation , came in bec of severe abd pain . CT of abd showed fecal impaction and abd distention. Developed severe acute abdomen- underwent Explor Lap with Partial Colectomy with Colostomy. Currently doing well , transferred to telemetry.Hemodynamically stable, afebrile , tachycardic, tolerating regular diet . 1. Fecal impaction s/p Partial Colectomy and Colostomy 12/19 Acute ? poss Hirschsprung , awaiting pathology. Patient will need rectal biopsy to rule out Hirschprung before trying to reverse colostomy tolerating regular diet Continue ambulation and incentive spirometry cont IV Zosyn, pain management, IVF YAMILE drain to RLQ with 145 ml output last 12 hours Colostomy to the left abdominal with minimal serous output Surgery following closely 2. Sinus Tachycardia unclear etiology Continue pain management and IVF TSH -wnl 3. Anemia of acute blood loss during surgery Hgb dropped from 14-- 10 Monitor for now 4.Prophylaxis Lovenox Protonix
[2016-12-23] MEDS: HYDROmorphone 0.5 mg/0.5 ml ISec IVP PRN ×3 (08:41→19:47)
[2016-12-23] MEDS: Enoxaparin 40 mg Syringe SC SCH (08:46)
[2016-12-23] MEDS: Oxycodone/Acetaminophen 5/325 mg Tab PO PRN (22:32)
[2016-12-24] MEDS: Piperacillin/Tazobact 3.375 GM in Sodium Chloride 0.9% 100 ML IVPB SCH ×4 (03:05→21:28)
[2016-12-24] MEDS: Oxycodone/Acetaminophen 5/325 mg Tab PO PRN ×3 (06:21→22:29)
[2016-12-24 09:00] LABS: RBC URINE 41 /hpf (0-3); URINE BACTERIA RARE (<OCC); URINE BILIRUBIN NEGATIVE (NEGATIVE); URINE BLOOD LARGE (NEGATIVE); URINE COLOR YELLOW (YELLOW); URINE GLUCOSE (UA) NEG (Normal); URINE KETONE NEGATIVE (NEGATIVE); URINE LEUKOCYTE ESTERASE SMALL Leu/uL (Negative); URINE PROTEIN NEGATIVE (NEGATIVE); WBC URINE 11 /hpf (0-5)
--- NOTE | 2016-12-24 12:02 | CP.PCM.PN ---
Subjective - Date & Time of Evaluation Date of Evaluation: 12/24/16 Time of Evaluation: 10:30 - Subjective Subjective: No fever abd pain controlled no cough no CP no SOB minimal output from YAMILE drain and from Colostomy tolerating Regular diet Objective - Vital Signs/Intake and Output Vital Signs (last 24 hours): Temp Pulse Resp BP Pulse Ox 98.4 F 89 20 109/73 99 12/24/16 08:07 12/24/16 08:07 12/24/16 08:07 12/24/16 08:07 12/24/16 08:07 Intake and Output: 12/24/16 12/24/16 06:59 18:59 Intake Total 400 Output Total 45 Balance 355 - Medications Medications: Current Medications Acetaminophen (Tylenol 325mg Tab) 650 mg PO Q4 PRN PRN Reason: Fever >100.4 F Benzocaine/Menthol (Cepacol Sore Throat) 1 lissy PO Q6H PRN PRN Reason: Sore Throat Last Admin: 12/20/16 09:08 Dose: 1 lissy Hydromorphone HCl (Dilaudid) 0.5 mg IVP Q4H PRN PRN Reason: Pain, severe (8-10) Last Admin: 12/23/16 19:47 Dose: 0.5 mg Piperacillin Sod/Tazobactam (Sod 3.375 gm/ Sodium Chloride) 100 mls @ 100 mls/ hr IVPB Q6 [facility] Oxycodone/Acetaminophen (Percocet 5/325 Mg Tab) 1 tab PO Q4 PRN PRN Reason: Pain, moderate (4-7) Stop: 12/26/16 07:53 Last Admin: 12/24/16 06:21 Dose: 1 tab Pantoprazole Sodium (Protonix Inj) 40 mg IVP DAILY [facility] Last Admin: 12/24/16 09:38 Dose: 40 mg - Labs Labs: 12/23/16 04:45 12/23/16 04:45 PT 14.4 Seconds (9.8-13.1) H 12/18/16 15:30 INR 1.3 (0.9-1.2) H 12/18/16 15:30 APTT 26.7 Seconds (25.6-37.1) 12/18/16 15:30 - Constitutional Appears: No Acute Distress - Head Exam Head Exam: NORMAL INSPECTION, NORMOCEPHALIC - Eye Exam Eye Exam: EOMI, Normal appearance, PERRL Pupil Exam: NORMAL ACCOMODATION - ENT Exam ENT Exam: Mucous Membranes Moist, Normal External Ear Exam - Neck Exam Neck Exam: Full ROM. absent: Meningismus - Respiratory Exam Respiratory Exam: NORMAL BREATHING PATTERN. absent: Respiratory Distress - Cardiovascular Exam Cardiovascular Exam: Tachycardia, REGULAR RHYTHM, +S1, +S2 - GI/Abdominal Exam GI & Abdominal Exam: Distended, Tenderness, Hypoactive Bowel Sounds Additional comments: Surgical dressing intact YAMILE drain on the right Colostomy bag on the left - Extremities Exam Extremities Exam: Full ROM, Normal Capillary Refill. absent: Calf Tenderness - Back Exam Back Exam: Full ROM - Neurological Exam Neurological Exam: Alert, Awake, CN II-XII Intact, Oriented x3 Neuro motor strength exam: Left Upper Extremity: 5, Right Upper Extremity: 5, Left Lower Extremity: 5, Right Lower Extremity: 5 - Psychiatric Exam Psychiatric exam: Normal Affect, Normal Mood - Skin Skin Exam: Dry, Normal Color, Warm Assessment and Plan (1) Fecal impaction Status: Acute (2) Perforation of colon Status: Ruled-out (3) S/P partial resection of colon Status: Acute (4) S/P colostomy Status: Acute - Assessment and Plan (Free Text) Assessment: 21 y/o lady with hx of Constipation , came in bec of severe abd pain . CT of abd showed fecal impaction and abd distention. Developed severe acute abdomen- underwent Explor Lap with Partial Colectomy with Colostomy. Currently doing well , transferred to telemetry. Hemodynamically stable, afebrile, tachycardic, tolerating regular diet . 1. Fecal impaction s/p Partial Colectomy and Colostomy 12/19 Acute ? poss Hirschsprung , awaiting pathology. Patient will need rectal biopsy to rule out Hirschprung before trying to reverse colostomy tolerating regular diet Continue ambulation and incentive spirometry cont IV Zosyn, pain management, IVF YAMILE drain to RLQ Colostomy to the left abdominal with minimal serous and minimal soft stool Surgery following pt closely 2. Sinus Tachycardia unclear etiology Continue pain management and IVF TSH -wnl 3. Anemia of acute blood loss during surgery Hgb dropped from 14-- 10 Monitor for now 4.Prophylaxis Lovenox Protonix
--- NOTE | 2016-12-24 15:04 | CP.PCM.PN ---
Subjective - Date & Time of Evaluation Date of Evaluation: 12/24/16 Time of Evaluation: 09:15 - Subjective Subjective: General Surgery progress note for Dr. Casillas Pt s/e at bedside, KRISTIEEO. Patient states that her pain is improving, and denies any nausea/vomiting, and is tolerating her regular diet well. Patient's is afebrile but tachycardia has resolved this AM. Patient has what appears to be a small piece of stool in her ostomy but otherwise only clear serous fluid has been produced. Objective - Vital Signs/Intake and Output Vital Signs (last 24 hours): Temp Pulse Resp BP Pulse Ox 98.2 F 92 H 20 114/74 99 12/24/16 12:12 12/24/16 12:12 12/24/16 12:12 12/24/16 12:12 12/24/16 12:12 Intake and Output: 12/24/16 12/24/16 06:59 18:59 Intake Total 400 Output Total 45 Balance 355 - Medications Medications: Current Medications Acetaminophen (Tylenol 325mg Tab) 650 mg PO Q4 PRN PRN Reason: Fever >100.4 F Benzocaine/Menthol (Cepacol Sore Throat) 1 lissy PO Q6H PRN PRN Reason: Sore Throat Last Admin: 12/20/16 09:08 Dose: 1 lissy Hydromorphone HCl (Dilaudid) 0.5 mg IVP Q4H PRN PRN Reason: Pain, severe (8-10) Last Admin: 12/23/16 19:47 Dose: 0.5 mg Piperacillin Sod/Tazobactam (Sod 3.375 gm/ Sodium Chloride) 100 mls @ 100 mls/ hr IVPB Q6 FERNANDO Last Admin: 12/24/16 12:04 Dose: 100 mls/hr Oxycodone/Acetaminophen (Percocet 5/325 Mg Tab) 1 tab PO Q4 PRN PRN Reason: Pain, moderate (4-7) Stop: 12/26/16 07:53 Last Admin: 12/24/16 06:21 Dose: 1 tab Pantoprazole Sodium (Protonix Ec Tab) 40 mg PO DAILY FERNANDO - Labs Labs: 12/23/16 04:45 12/23/16 04:45 PT 14.4 Seconds (9.8-13.1) H 12/18/16 15:30 INR 1.3 (0.9-1.2) H 12/18/16 15:30 APTT 26.7 Seconds (25.6-37.1) 12/18/16 15:30 - Constitutional Appears: Well, Non-toxic, No Acute Distress - Head Exam Head Exam: ATRAUMATIC, NORMOCEPHALIC - Eye Exam Eye Exam: Normal appearance. absent: Conjunctival injection, Scleral icterus - ENT Exam ENT Exam: Mucous Membranes Moist, Normal Oropharynx - Respiratory Exam Respiratory Exam: NORMAL BREATHING PATTERN. absent: Accessory Muscle Use, Respiratory Distress - Cardiovascular Exam Cardiovascular Exam: RRR - GI/Abdominal Exam GI & Abdominal Exam: Soft, Tenderness (around the incision/drain site). absent : Distended Additional comments: Surgical incision covered in dressing C/D/I. Colostomy pink, patent, and productive of serous fluid with a small dark particle. Brody drain with sero- sanguinous fluid output - Extremities Exam Extremities Exam: absent: Calf Tenderness, Pedal Edema, Tenderness - Back Exam Back Exam: NORMAL INSPECTION - Neurological Exam Neurological Exam: Alert, Awake, Oriented x3 - Psychiatric Exam Psychiatric exam: Normal Affect, Normal Mood - Skin Skin Exam: Dry, Normal Color, Warm Assessment and Plan - Assessment and Plan (Free Text) Assessment: 21F POD#6 s/p ex-lap, partial sigmoid colon resection, and end colostomy for severe chronic fecal impaction Patient continues to improve clinically No significant colostomy output Brody drain output decreasing Plan: - Continue Regular diet - pain control, continue antibiotics - monitor drain/monitor ostomy output - Ambulation and incentive spirometer use - DVT/GI ppx - Further recs per Dr. Sonja Cummings, PGY-0
[2016-12-25] MEDS: Piperacillin/Tazobact 3.375 GM in Sodium Chloride 0.9% 100 ML IVPB SCH ×2 (03:39→09:02)
[2016-12-25 08:26] VITALS: RESP 20; TEMP 98.2
--- NOTE | 2016-12-25 08:29 | CP.PCM.PN ---
Subjective - Date & Time of Evaluation Date of Evaluation: 12/25/16 Time of Evaluation: 07:00 - Subjective Subjective: General Surgery progress note for Dr. Garces, covering for Dr. Casillas Pt s/e at bedside this AM. KRISTIEEO. Patient had moderate amount of liquid stool output from her ostomy last night and only 12cc's serosanguinous fluid from her brody drain. Denies any nausea/vomiting and tolerated diet well. Objective - Vital Signs/Intake and Output Vital Signs (last 24 hours): Temp Pulse Resp BP Pulse Ox 98.2 F 90 20 105/68 98 12/25/16 08:25 12/25/16 08:25 12/25/16 08:25 12/25/16 08:25 12/25/16 08:25 Intake and Output: 12/25/16 12/25/16 06:59 18:59 Intake Total 500 Output Total 10 Balance 490 - Medications Medications: Current Medications Acetaminophen (Tylenol 325mg Tab) 650 mg PO Q4 PRN PRN Reason: Fever >100.4 F Benzocaine/Menthol (Cepacol Sore Throat) 1 lissy PO Q6H PRN PRN Reason: Sore Throat Last Admin: 12/20/16 09:08 Dose: 1 lissy Hydromorphone HCl (Dilaudid) 0.5 mg IVP Q4H PRN PRN Reason: Pain, severe (8-10) Last Admin: 12/23/16 19:47 Dose: 0.5 mg Piperacillin Sod/Tazobactam (Sod 3.375 gm/ Sodium Chloride) 100 mls @ 100 mls/ hr IVPB Q6 FERNANDO Last Admin: 12/25/16 03:39 Dose: 100 mls/hr Lactulose (Enulose) 20 gm PO DAILY PRN PRN Reason: Constipation Oxycodone/Acetaminophen (Percocet 5/325 Mg Tab) 1 tab PO Q4 PRN PRN Reason: Pain, moderate (4-7) Stop: 12/26/16 07:53 Last Admin: 12/24/16 22:29 Dose: 1 tab Pantoprazole Sodium (Protonix Ec Tab) 40 mg PO DAILY FERNANDO Last Admin: 12/25/16 08:21 Dose: 40 mg - Labs Labs: 12/23/16 04:45 06/14/17 04:45 PT 14.4 Seconds (9.8-13.1) H 12/18/16 15:30 INR 1.3 (0.9-1.2) H 12/18/16 15:30 APTT 26.7 Seconds (25.6-37.1) 12/18/16 15:30 - Constitutional Appears: Well, Non-toxic, No Acute Distress - Head Exam Head Exam: ATRAUMATIC, NORMOCEPHALIC - Eye Exam Eye Exam: Normal appearance. absent: Conjunctival injection, Scleral icterus - ENT Exam ENT Exam: Mucous Membranes Moist, Normal Oropharynx - Respiratory Exam Respiratory Exam: NORMAL BREATHING PATTERN. absent: Accessory Muscle Use, Respiratory Distress - Cardiovascular Exam Cardiovascular Exam: RRR - GI/Abdominal Exam GI & Abdominal Exam: Soft, Tenderness (Moderate tenderness at the drain site and the incision). absent: Distended Additional comments: ostomy pink and productive of liquid stool. Surgical incision covered in dressing with mild sero-sanguinous saturation, well approximated with juan - Extremities Exam Extremities Exam: absent: Calf Tenderness, Pedal Edema, Tenderness - Neurological Exam Neurological Exam: Alert, Awake, Oriented x3 - Psychiatric Exam Psychiatric exam: Anxious, Normal Affect - Skin Skin Exam: Dry, Normal Color, Warm Assessment and Plan - Assessment and Plan (Free Text) Assessment: 21F POD#7 s/p ex-lap, partial sigmoid colon resection, and end colostomy for severe chronic fecal impaction Patient continues to improve clinically Liquid stool output through the colostomy Minimal brody drain output Pathology revealed edematous tissue with microvascular ischemia likely d/t fecoliths, ganglion throughout the sample and in the margins Plan: -Patient is clinically stable with physical exam improving daily. Colostomy has started functioning with one dose of lactulose, patient is tolerating regular diet, ambulating well, pain well controlled with minimal PO pain medication, minimal sero-sanguinous output in brody drain -Patient is cleared for discharge from a surgical standpoint with PO antibiotics , PO pain medication, and PO lactulose daily to maintain bowel function -Brody drain removed from RLQ without any complications, patient tolerated well. -Follow up with Dr. Casillas in his office in 2 weeks Patient seen and discussed with Dr. Dez Cummings, PGY-9
[2016-12-25] MEDS ORDERED: Pantoprazole 40 mg EC Tab PO SCH (09:00)
[2016-12-25 09:19] LABS: HEMATOCRIT 38.6 % (34.0-47.0); MEAN CELL VOLUME 88.3 fl (81.0-99.0); MEAN CORPUSCULAR HEMOGLOBIN 29.5 pg (27.0-31.0); MEAN CORPUSCULAR HGB CONC 33.3 g/dL (33.0-37.0); RED CELL DISTRIBUTION WIDTH 14.4 % (11.5-14.5); WHITE BLOOD COUNT 8.3 K/uL (4.8-10.8)
[2016-12-25] MEDS: Oxycodone/Acetaminophen 5/325 mg Tab PO PRN (09:46)
[2016-12-25 12:37] VITALS: BP 122/76; PULSE 105; O2SAT 100
--- NOTE | 2016-12-25 12:59 | CP.PCM.DIS ---
Provider - Provider Date of Admission: 12/18/16 19:15 Attending physician: Gilberto Lyn MD Primary care physician: Margarita Nuno Consults: Surgery : Dr Casillas Time Spent in preparation of Discharge (in minutes): 35 Diagnosis - Discharge Diagnosis (1) Fecal impaction Status: Acute (2) Perforation of colon Status: Ruled-out (3) S/P partial resection of colon Status: Acute (4) S/P colostomy Status: Acute Hospital Course - Lab Results Lab Results: Micro Results 12/22/16 14:00 Naris MRSA Culture (Admit) - Final MRSA NOT DETECTED 12/18/16 20:17 Urine,Catheterized Urine Culture - Final No Growth (<1,000 CFU/ML) 12/18/16 Unknown Stool Stool Culture - Final NO SALMONELLA, SHIGELLA OR CAMPYLOBACTER ISOLATED. 12/19/16 08:50 Nose MRSA Culture (Admit) - Final MRSA NOT DETECTED Most Recent Lab Values WBC 8.3 K/uL (4.8-10.8) 12/25/16 09:14 RBC 4.37 Mil/uL (3.80-5.20) 12/25/16 09:14 Hgb 12.9 g/dL (12.0-16.0) 12/25/16 09:14 Hct 38.6 % (34.0-47.0) 12/25/16 09:14 MCV 88.3 fl (81.0-99.0) 12/25/16 09:14 MCH 29.5 pg (27.0-31.0) 12/25/16 09:14 MCHC 33.3 g/dL (33.0-37.0) 12/25/16 09:14 RDW 14.4 % (11.5-14.5) 12/25/16 09:14 Plt Count 529 K/uL (130-400) H D 12/25/16 09:14 MPV 6.9 fl (7.2-11.7) L 12/21/16 04:30 Neut % (Auto) 77.5 % (50.0-75.0) H 12/21/16 04:30 Lymph % (Auto) 12.6 % (20.0-40.0) L 12/21/16 04:30 [place] % (Auto) 8.9 % (0.0-10.0) 12/21/16 04:30 Eos % (Auto) 0.8 % (0.0-4.0) 12/21/16 04:30 Baso % (Auto) 0.2 % (0.0-2.0) 12/21/16 04:30 Neut # 10.7 K/uL (1.8-7.0) H 12/21/16 04:30 Lymph # 1.7 K/uL (1.0-4.3) 12/21/16 04:30 [place] # 1.2 K/uL (0.0-0.8) H 12/21/16 04:30 Eos # 0.1 K/uL (0.0-0.7) 12/21/16 04:30 Baso # 0.0 K/uL (0.0-0.2) 12/21/16 04:30 Neutrophils % (Manual) 85 % (42-75) H 12/18/16 15:30 Lymphocytes % (Manual) 8 % (20-50) L 12/18/16 15:30 Monocytes % (Manual) 7 % (0-10) 12/18/16 15:30 Platelet Estimate Slightly increased (NORMAL) H 12/18/16 15:30 PT 14.4 Seconds (9.8-13.1) H 12/18/16 15:30 INR 1.3 (0.9-1.2) H 12/18/16 15:30 APTT 26.7 Seconds (25.6-37.1) 12/18/16 15:30 pO2 38 mm/Hg (30-55) 12/18/16 18:40 VBG pH 7.34 (7.32-7.43) 12/18/16 18:40 VBG pCO2 41 mmHg (40-60) 12/18/16 18:40 VBG HCO3 21.4 mmol/L 12/18/16 18:40 VBG Total CO2 23.4 mmol/L (22-28) 12/18/16 18:40 VBG O2 Sat (Calc) 70.8 % (40-65) H 12/18/16 18:40 VBG Base Excess -3.5 mmol/L (0.0-2.0) L 12/18/16 18:40 VBG Potassium 4.5 mmol/L (3.6-5.2) 12/18/16 18:40 Sodium 136.0 mmol/L (132-148) 12/18/16 18:40 Chloride 104.0 mmol/L (98-107) 12/18/16 18:40 Glucose 111 mg/dL (65-105) H 12/18/16 18:40 Lactate 2.3 mmol/L (0.7-2.1) H 12/18/16 18:40 FiO2 21.0 % 12/18/16 18:40 Sodium 139 mmol/l (132-148) 12/23/16 04:45 Potassium 3.6 MMOL/L (3.6-5.0) 12/23/16 04:45 Chloride 104 mmol/L (98-107) 12/23/16 04:45 Carbon Dioxide 26 mmol/L (22-30) 12/23/16 04:45 Anion Gap 12 (10-20) 12/23/16 04:45 BUN 3 mg/dl (7-17) L 12/23/16 04:45 Creatinine 0.6 mg/dL (0.7-1.2) L 12/23/16 04:45 Est GFR ( Amer) > 60 12/23/16 04:45 Est GFR (Non-Af Amer) > 60 12/23/16 04:45 Random Glucose 114 mg/dL (65-105) H 12/23/16 04:45 Calcium 8.1 mg/dL (8.4-10.2) L 12/23/16 04:45 Phosphorus 4.7 mg/dl (2.5-4.5) H 12/18/16 15:30 Magnesium 2.0 MG/DL (1.6-2.3) 12/22/16 11:21 Total Bilirubin 0.7 mg/dl (0.2-1.3) 12/21/16 04:30 AST 57 U/L (14-36) H D 12/21/16 04:30 ALT 31 U/L (9-52) 12/21/16 04:30 Alkaline Phosphatase 51 U/L (38-126) 12/21/16 04:30 Total Protein 5.6 G/DL (6.3-8.2) L 12/21/16 04:30 Albumin 2.6 g/dL (3.5-5.0) L D 12/21/16 04:30 Globulin 3.0 gm/dL (2.2-3.9) 12/21/16 04:30 Albumin/Globulin Ratio 0.9 (1.0-2.1) L 12/21/16 04:30 TSH 3rd Generation 2.41 mIU/ML (0.46-4.68) 12/22/16 04:30 Serum HCG, Qual Negative (NEGATIVE) 12/18/16 16:16 Beta HCG, Quant < 2.39 mIU/mL 12/18/16 16:10 Venous Blood Potassium 4.5 mmol/L (3.6-5.2) 12/18/16 18:40 Urine Color Yellow (YELLOW) 12/24/16 08:00 Urine Clarity Cloudy (Clear) 12/24/16 08:00 Urine pH 7.0 (5.0-8.0) 12/24/16 08:00 Ur Specific [place] 1.020 (1.003-1.030) 12/24/16 08:00 Urine Protein Negative mg/dL (NEGATIVE) 12/24/16 08:00 Urine Glucose (UA) Neg mg/dL (Normal) 12/24/16 08:00 Urine Ketones Negative mg/dL (NEGATIVE) 12/24/16 08:00 Urine Blood Large (NEGATIVE) 12/24/16 08:00 Urine Nitrate Negative (NEGATIVE) 12/24/16 08:00 Urine Bilirubin Negative (NEGATIVE) 12/24/16 08:00 Urine Urobilinogen 4.0 mg/dL (0.2-1.0) H 12/24/16 08:00 Ur Leukocyte Esterase Small Danyel/uL (Negative) 12/24/16 08:00 Urine RBC (Auto) 41 /hpf (0-3) H 12/24/16 08:00 Urine Microscopic WBC 11 /hpf (0-5) H 12/24/16 08:00 Ur Squamous Epith Cells 11 /hpf (0-5) H 12/24/16 08:00 Amorphous Sediment Rare /ul (<OCC) H 12/24/16 08:00 Urine Bacteria Rare (<OCC) 12/24/16 08:00 Hyaline Casts 0-2 /hpf (0-2) 12/18/16 20:17 Stool Leukocytes, Qual Negative (NEGATIVE) 12/18/16 Unknown C. difficile Ag & Toxin Negative (NEGATIVE) 12/18/16 Unknown - Hospital Course Hospital Course: 21 y/o lady with hx of Constipation , came in bec of severe abd pain . CT of abd showed fecal impaction and abd distention. Developed severe acute abdomen- underwent Explor Lap with Partial Colectomy with Colostomy. Currently doing well , transferred to telemetry. Hemodynamically stable, afebrile, tolerating regular diet . 1. Severe Abdominal Pain sec to Fecal impaction s/p Explor Lap , Partial Colectomy and Colostomy ( 12/19) pathology : gangion cells present tolerating regular diet, afebrile, + BM in Colostomy Continue ambulation and incentive spirometry completed IV zosyn and Flagyl x 1 wk , will give 1 more week of PO Augmentin and Flagyl YAMILE drain to RLQ removed Colostomy to the left abdominal with soft stools Colostomy care teaching done Home RN- [facility] 2. Sinus Tachycardia, resolved unclear etiology pain management and IVF TSH -wnl 3. Anemia of acute blood loss during surgery mild Hgb dropped from 14-- 12 4.Prophylaxis Lovenox Protonix Discharge Exam - Head Exam Head Exam: ATRAUMATIC, NORMAL INSPECTION, NORMOCEPHALIC - Eye Exam Eye Exam: EOMI, Normal appearance, PERRL Pupil Exam: NORMAL ACCOMODATION - ENT Exam ENT Exam: Mucous Membranes Moist, Normal External Ear Exam - Neck Exam Neck exam: Full Rom - Respiratory Exam Respiratory Exam: NORMAL BREATHING PATTERN. absent: Rales, Wheezes, Respiratory Distress - Cardiovascular Exam Cardiovascular Exam: REGULAR RHYTHM, +S1, +S2 - GI/Abdominal Exam GI & Abdominal Exam: Normal Bowel Sounds, Soft. absent: Tenderness Additional comments: midline surgical wound with clean dressing left Colostomy bag - Extremities Exam Extremities exam: full ROM, normal capillary refill, normal inspection, pedal pulses present Additional comments: negative calf tenderness - Back Exam Back exam: FULL ROM. absent: CVA tenderness (L), CVA tenderness (R) - Neurological Exam Neurological exam: Alert, CN II-XII Intact, Oriented x3, Reflexes Normal - Psychiatric Exam Psychiatric exam: Normal Affect, Normal Mood - Skin Skin Exam: Dry, Normal Color, Warm Discharge Plan - Discharge Medications Prescriptions: Amoxicillin/Clavulanate [Augmentin 875 MG-125 MG] 1 tab PO BID #14 tab Lactulose [Enulose] 20 gm PO DAILY PRN #500 ml PRN Reason: Constipation metroNIDAZOLE [Flagyl] 500 mg PO TID #20 tab oxyCODONE/Acetaminophen [Percocet 5/325 mg Tab] 1 tab PO Q6 PRN #20 tab PRN Reason: Pain, Moderate (4-7) Pantoprazole [Protonix EC Tab] 40 mg PO DAILY #30 ect - Follow Up Plan Condition: GOOD Disposition: HOME/ ROUTINE Additional Instructions: nematologist - Colostomy Care ff up with Dr Casillas in 2 wks ff up with PMD angel Referrals: Crispin Casillas MD [Staff Provider] - Margarita Mcintosh MD [Family Provider] -
--- NOTE | 2016-12-28 16:54 | CP.PCM.PCO ---
Physician Communication Note - Physician Communication Note Physician Communication Note: Please see above
== END 2016-12-25 18:50 | disposition home health service (06) | DRG 148 ==
LOC: H.ER 14:17 → H.ERHOLD 19:15 → H.ICU/CCU 12-19 04:57 → H.TEL 12-22 16:10
PROVIDERS: ADMIT Family Medicine; ATTEND Family Medicine
PROC: 0D1M0Z4 Bypass Descending Colon to Cutaneous, Open Approach (ICD-10-PCS; 2016-12-18)
PROC: 0DTM0ZZ Resection of Descending Colon, Open Approach (ICD-10-PCS; principal; 2016-12-18 21:15)
DX: K56.41 Fecal impaction (principal); D62 Acute posthemorrhagic anemia; K59.39 Other megacolon; D72.829 Elevated white blood cell count, unspecified; J45.909 Unspecified asthma, uncomplicated; R00.0 Tachycardia, unspecified; Z91.010 Allergy to peanuts

== ENCOUNTER 2016-12-27 14:45 | Observation (INO) | payer OTHER ==
[2016-12-27 14:52] VITALS: BP 106/66; PULSE 110; RESP 20; TEMP 98.5; O2SAT 98
[2016-12-27] MEDS ORDERED: Sodium Chloride 0.9% 1,000 ML IV STA (15:38)
[2016-12-27 16:47] LABS: BASO % 0.6 % (0.0-2.0); EOS # 0.1 K/uL (0.0-0.7); EOS % 1.4 % (0.0-4.0); HEMATOCRIT 38.5 % (34.0-47.0); LYMPH # 1.2 K/uL (1.0-4.3); LYMPH % 17.2 % (20.0-40.0); MEAN CELL VOLUME 88.2 fl (81.0-99.0); MEAN CORPUSCULAR HEMOGLOBIN 29.1 pg (27.0-31.0); MEAN PLATELET VOLUME 6.5 fl (7.2-11.7); MONO # 0.5 K/uL (0.0-0.8); MONO % 7.4 % (0.0-10.0); NEUT # 5.1 K/uL (1.8-7.0); NEUT % 73.4 % (50.0-75.0); NRBC % 0.1 % (0.0-0.0); RED CELL DISTRIBUTION WIDTH 15.1 % (11.5-14.5); WHITE BLOOD COUNT 6.9 K/uL (4.8-10.8)
[2016-12-27 16:59] LABS: ALB/GLOB RATIO 0.9 (1.0-2.1); ALKALINE PHOSPHATASE 66 U/L (38-126); ALT/SGPT 67 U/L (9-52); AST/SGOT 40 U/L (14-36); BILIRUBIN,TOTAL 0.5 mg/dl (0.2-1.3); BLOOD UREA NITROGEN 11 mg/dl (7-17); CALCIUM 9.1 mg/dL (8.4-10.2); CARBON DIOXIDE 26 mmol/L (22-30); CHLORIDE 103 mmol/L (98-107); GFR AFRICAN-AMERICAN > 60; GLUCOSE,RANDOM 99 mg/dL (65-105); POTASSIUM 4.1 MMOL/L (3.6-5.0); SODIUM 140 mmol/l (132-148); TOTAL PROTEIN 8.2 G/DL (6.3-8.2)
[2016-12-27 17:14] LABS: RBC URINE 22 /hpf (0-3); URINE BILIRUBIN SMALL (NEGATIVE); URINE BLOOD SMALL (NEGATIVE); URINE COLOR AMBER (YELLOW); URINE GLUCOSE (UA) NEG (Normal); URINE KETONE NEGATIVE (NEGATIVE); URINE LEUKOCYTE ESTERASE MOD Leu/uL (Negative); URINE PROTEIN 30 mg/dL (NEGATIVE); WBC URINE 21 /hpf (0-5)
[2016-12-27 17:15] LABS: URINE BACTERIA MANY (<OCC)
[2016-12-27 17:32] LABS: PARTIAL THROMBOPLASTIN TIME 31.7 Seconds (25.6-37.1)
[2016-12-27] MEDS ORDERED: Sodium Chloride 0.9% 50 ML IV ONE (18:20)
[2016-12-27] MEDS ORDERED: Iohexol 300 100 ML IJ ONE (18:20)
--- NOTE | 2016-12-27 19:03 | ED PDOC ---
HPI: Back Time Seen by Provider: 12/27/16 15:19 Chief Complaint (Nursing): Back Pain Chief Complaint (Provider): Back Pain History Per: Patient History/Exam Limitations: no limitations Onset/Duration Of Symptoms: Hrs (earlier today) Current Symptoms Are (Timing): Still Present Quality Of Discomfort: "Pain" Associated Symptoms: None Additional Complaint(s): 21 year old female presents to ED with complaints of lower back pain since earlier today. Patient was recently discharged from [facility] after colostomy placement and notes that she was sent to ED because visiting nurse noted a fast heart rate. Patient notes that lower back pain only occurs with movement or standing, and is in no pain when resting. (-) fever, nausea, vomiting, pain around surgical site, or discharge. PCP: Non CPH - Risk Factors AAA Risk Factors: Neg: Older Than 49 Years Of Age Past Medical History Reviewed: Historical Data, Nursing Documentation, Vital Signs Vital Signs: Last Vital Signs Temp 98.5 F 12/27/16 14:47 Pulse 110 H 12/27/16 14:47 Resp 20 12/27/16 14:47 BP 106/66 12/27/16 14:47 Pulse Ox 98 12/27/16 14:47 - Medical History PMH: Asthma - Surgical History Surgical History: Denies: No Surg Hx - Family History Family History: States: Unknown Family Hx - Social History Current smoker - smoking cessation education provided: No Alcohol: None Drugs: Denies - Immunization History Hx Tetanus Toxoid Vaccination: No Hx Influenza Vaccination: No Hx Pneumococcal Vaccination: No - Home Medications Home Medications: Ambulatory Orders Medication Instructions Recorded Amoxicillin/Clavulanate [Augmentin 1 tab PO BID #14 tab 12/25/16 875 MG-125 MG] Lactulose [Enulose] 20 gm PO DAILY PRN #500 ml 12/25/16 Pantoprazole [Protonix EC Tab] 40 mg PO DAILY #30 ect 12/25/16 metroNIDAZOLE [Flagyl] 500 mg PO TID #20 tab 12/25/16 oxyCODONE/Acetaminophen [Percocet 1 tab PO Q6 PRN #20 tab 12/25/16 5/325 mg Tab] - Allergies Allergies/Adverse Reactions: Allergies Allergy/AdvReac Type Severity Reaction Status Date / Time peanut Allergy Severe hives Verified 12/18/16 14:31 Review of Systems ROS Statement: Except As Marked, All Systems Reviewed And Found Negative Cardiovascular: Positive for: Other (fast heart rate) Gastrointestinal: Negative for: Nausea, Vomiting Musculoskeletal: Positive for: Back Pain Physical Exam - Reviewed Nursing Documentation Reviewed: Yes Vital Signs Reviewed: Yes - Physical Exam Appears: Positive for: Non-toxic, No Acute Distress Head Exam: Positive for: ATRAUMATIC Skin: Positive for: Normal Color, Warm, Dry Eye Exam: Positive for: Normal appearance, EOMI, PERRL ENT: Positive for: Normal ENT Inspection Neck: Positive for: Normal, Painless ROM, Supple Cardiovascular/Chest: Positive for: Regular Rate, Rhythm, Tachycardia. Negative for: Murmur Respiratory: Positive for: Normal Breath Sounds. Negative for: Respiratory Distress Gastrointestinal/Abdominal: Positive for: Normal Exam, Soft, Other (Colostomy in place with stool in bag, no blood. Incision C/D/I). Negative for: Tenderness Back: Positive for: Normal Inspection. Negative for: L CVA Tenderness, R CVA Tenderness, Vertebral Tenderness Extremity: Negative for: Deformity Neurologic/Psych: Positive for: Alert, Oriented. Negative for: Motor/Sensory Deficits - Laboratory Results Result Diagrams: 12/27/16 16:43 12/27/16 16:43 - ECG O2 Sat by Pulse Oximetry: 98 (RA) Pulse Ox Interpretation: Normal Medical Decision Making Medical Decision Makin Initial impression: back pain and tachycardia Initial plan: * CTA A/P * EKG * Labs * PTT/PT * NS IV * UA 1600 * ED OBS All further documentation will take place in ED OBS note. Scribe Attestation: Documented by Bren Fan acting as a scribe for Vale Valencia MD. Scribe Attestation: All medical record entries made by the Scribe were at my direction and personally dictated by me. I have reviewed the chart and agree that the record accurately reflects my personal performance of the history, physical exam, medical decision making, and the department course for this patient. I have also personally directed, reviewed, and agree with the discharge instructions and disposition. ED OBSERVATION Date of observation admission: 12/27/16 Time of observation admission: 16:00 - Observation admission statement Patient is being placed in observation because:: Length of treatment as well as awaiting CT results - Goals of Observation Goals of observation are:: CT results Disposition - Patient ED Disposition Is Patient to be Admitted: No - Disposition Disposition Time: 16:00 Condition: STABLE Patient Signed Over To: Angie Renner Handoff Comments: Pending CT, CXR, and final disposition - Pt Status Changed To: Hospital Disposition Of: Observation
--- NOTE | 2016-12-27 19:21 | ED PDOC ---
- Laboratory Results Result Diagrams: 12/27/16 16:43 12/27/16 16:43 - ECG O2 Sat by Pulse Oximetry: 98 (RA) Medical Decision Making Medical Decision Makin Patient signed out to me from Dr. Valencia pending CT and re-evaluation. 2110 CT FINDINGS Lower thorax: Heart size is normal. Lung bases are clear ABDOMEN: Liver: unremarkable Gallbladder and bile ducts: unremarkable Pancreas: unremarkable Spleen: unremarkable Adrenals: unremarkable Kidneys and ureters: There are small bilateral nonobstructing renal stones.Kidneys and ureters are otherwise unremarkable. Stomach and bowel: Stomach is partially distended with air and fluid. There is mild antral wall thickening. Rotation is normal. Small bowel is mildly distended with fluid and air. Lack of oral contrast limits evaluation of the small bowel. There is no obstruction. Ileocecal region is not well demonstrated. Terminal ileum is unremarkable. Appendix is not visualized. There is a small amount of stool in the right colon. There is diffuse transverse colon wall thickening beginning at the hepatic flexure. Wall thickening decreases at the splenic flexure. There is mid descending colonic wall thickening. There is a descending colon colostomy in the left flank. There has been partial left hemicolectomy. There is a rectal pouch. There is marked rectal wall thickening. Appendix: See above. PELVIS: Bladder: Bladder is partially distended. There is mild bladder wall thickening. Reproductive: Uterus and adnexal structures are unremarkable. ABDOMEN and PELVIS: Intraperitoneal space: There is minimal fluid in the upper abdomen. There is free fluid in the pelvis. Bones/joints: unremarkable Soft tissues: There is edema in the abdominal wall. There are multiple juan in the abdominal wall. There may be a small amount of postoperative air in the anterior abdomen at the umbilicus. There may be a small amount of postoperative air in the left lower quadrant. Vasculature: Vascular structures are unremarkable. Lymph nodes: There is no pathologic adenopathy. There are multiple shotty inguinal nodes. IMPRESSION: Partial left hemicolectomy with descending colon colostomy in the left lower quadrant; transverse, mid descending and rectal wall thickening consistent with colitis; free fluid greatest in the pelvis; probable post operative air in the midabdomen and left lower quadrant; nonobstructing renal stones, no ureteral stones or hydronephrosis Upon re-evaluation, patient is feeling much better and is medically stable and ready for discharge. Counseling has been provided and patient is in agreement. Return if symptoms persist or acutely worsen. Patient will continue taking Flagyl and Augmentin and she will follow up with PCP tomorrow. Dx: UTI and colitis Scribe Attestation: Documented by Bren Fan acting as a scribe for Angie Renner MD. Scribe Attestation: All medical record entries made by the Scribe were at my direction and personally dictated by me. I have reviewed the chart and agree that the record accurately reflects my personal performance of the history, physical exam, medical decision making, and the department course for this patient. I have also personally directed, reviewed, and agree with the discharge instructions and disposition. Disposition Counseled Patient/Family Regarding: Studies Performed, Diagnosis, Need For Followup - Clinical Impression Clinical Impression: Back pain, UTI (urinary tract infection) - POA Present On Arrival: None - Disposition Disposition: Routine/Home Disposition Time: 21:17 Condition: IMPROVED
--- NOTE | 2016-12-27 19:42 | CT ---
EXAM: CT Abdomen and Pelvis With Intravenous Contrast CLINICAL HISTORY: 21 years old, female; Pain; Other: Lower back pain; Prior surgery; Surgery date: 3-7 days post-operative; Additional info: Back pain, new colostomy TECHNIQUE: Axial computed tomography images of the abdomen and pelvis with intravenous contrast. This CT exam was performed using one or more of the following dose reduction techniques: automated exposure control, adjustment of the mA and/or kV according to patient size, and/or use of iterative reconstruction technique. Coronal and sagittal reformatted images were created and reviewed. CONTRAST: 95 mL of [id number] administered intravenously. COMPARISON: There are no prior studies for comparison.Exam Date/Time: 12/27/2016 3:48 PM FINDINGS: Lower thorax: Heart size is normal. Lung bases are clear ABDOMEN: Liver: unremarkable Gallbladder and bile ducts: unremarkable Pancreas: unremarkable Spleen: unremarkable Adrenals: unremarkable Kidneys and ureters: There are small bilateral nonobstructing renal stones.Kidneys and ureters are otherwise unremarkable. Stomach and bowel: Stomach is partially distended with air and fluid. There is mild antral wall thickening. Rotation is normal. Small bowel is mildly distended with fluid and air. Lack of oral contrast limits evaluation of the small bowel. There is no obstruction. Ileocecal region is not well demonstrated. Terminal ileum is unremarkable. Appendix is not visualized. There is a small amount of stool in the right colon. There is diffuse transverse colon wall thickening beginning at the hepatic flexure. Wall thickening decreases at the splenic flexure. There is mid descending colonic wall thickening. There is a descending colon colostomy in the left flank. There has been partial left hemicolectomy. There is a rectal pouch. There is marked rectal wall thickening. Appendix: See above. PELVIS: Bladder: Bladder is partially distended. There is mild bladder wall thickening. Reproductive: Uterus and adnexal structures are unremarkable. ABDOMEN and PELVIS: Intraperitoneal space: There is minimal fluid in the upper abdomen. There is free fluid in the pelvis. Bones/joints: unremarkable Soft tissues: There is edema in the abdominal wall. There are multiple juan in the abdominal wall. There may be a small amount of postoperative air in the anterior abdomen at the umbilicus. There may be a small amount of postoperative air in the left lower quadrant. Vasculature: Vascular structures are unremarkable. Lymph nodes: There is no pathologic adenopathy. There are multiple shotty inguinal nodes. IMPRESSION: Partial left hemicolectomy with descending colon colostomy in the left lower quadrant; transverse, mid descending and rectal wall thickening consistent with colitis; free fluid greatest in the pelvis; probable post operative air in the midabdomen and left lower quadrant; nonobstructing renal stones, no ureteral stones or hydronephrosis
--- NOTE | 2016-12-29 00:16 | CARD ---
APPROVED REPORT EKG Measurement Heart [id number] <Conclusion> Normal sinus rhythm Normal ECG
== END 2016-12-27 21:01 | disposition home or self-care (01) ==
LOC: H.ER 14:45 → H.EROBSV 16:00
PROVIDERS: ADMIT Emergency Medicine; ATTEND Emergency Medicine
DX: J45.909 Unspecified asthma, uncomplicated (principal); K52.9 Noninfective gastroenteritis and colitis, unspecified; N20.0 Calculus of kidney; N39.0 Urinary tract infection, site not specified; Z93.3 Colostomy status; R00.0 Tachycardia, unspecified

== ENCOUNTER 2017-01-22 18:55 | Emergency (ER) | payer OTHER ==
--- NOTE | 2017-01-22 19:30 | ED PDOC ---
HPI: General Adult Time Seen by Provider: 01/22/17 19:07 Chief Complaint (Nursing): Abdominal Pain Chief Complaint (Provider): Stool from rectum History Per: Patient History/Exam Limitations: no limitations Onset/Duration Of Symptoms: Days (Today afternoon) Have you had recent travel within the past 21 days to any of the following countries: [place], [place], Any [place] or [place]?: No Current Symptoms Are (Timing): Still Present Additional Complaint(s): Pt. with colostomy since December. States today afternoon she noted stool coming from her rectum. States usually it comes from her colostomy, but today only little came from there. Also noted yellow discharge around umbilicus for 2 days. No abd pain, fever, weakness, headaches, dizziness, or any other symptoms. No nausea, vomit. Past Medical History Reviewed: Nursing Documentation, Vital Signs Vital Signs: Last Vital Signs Temp 97.6 F 01/22/17 18:59 Pulse 109 H 01/22/17 18:59 Resp 18 01/22/17 18:59 BP 108/60 01/22/17 18:59 Pulse Ox 99 01/22/17 20:08 - Medical History PMH: Asthma - Surgical History Other surgeries: colostomy - Family History Family History: States: Unknown Family Hx - Living Arrangements Living Arrangements: With Family - Social History Current smoker - smoking cessation education provided: No Alcohol: None Drugs: Denies - Immunization History Hx Tetanus Toxoid Vaccination: No Hx Influenza Vaccination: No Hx Pneumococcal Vaccination: No - Home Medications Home Medications: Ambulatory Orders Medication Instructions Recorded Amoxicillin/Clavulanate [Augmentin 1 tab PO BID #14 tab 12/25/16 875 MG-125 MG] Lactulose [Enulose] 20 gm PO DAILY PRN #500 ml 12/25/16 Pantoprazole [Protonix EC Tab] 40 mg PO DAILY #30 ect 12/25/16 metroNIDAZOLE [Flagyl] 500 mg PO TID #20 tab 12/25/16 oxyCODONE/Acetaminophen [Percocet 1 tab PO Q6 PRN #20 tab 12/25/16 5/325 mg Tab] - Allergies Allergies/Adverse Reactions: Allergies Allergy/AdvReac Type Severity Reaction Status Date / Time peanut Allergy Severe hives Verified 12/18/16 14:31 Review of Systems ROS Statement: Except As Marked, All Systems Reviewed And Found Negative Physical Exam - Reviewed Nursing Documentation Reviewed: Yes Vital Signs Reviewed: Yes - Physical Exam Appears: Positive for: Well, Non-toxic, No Acute Distress Head Exam: Positive for: ATRAUMATIC, NORMAL INSPECTION, NORMOCEPHALIC Skin: Positive for: Normal Color, Warm, DRY Eye Exam: Positive for: EOMI, Normal appearance, PERRL ENT: Positive for: Normal ENT Inspection Neck: Positive for: Normal, Painless ROM Cardiovascular/Chest: Positive for: Regular Rate, Rhythm Respiratory: Positive for: CNT, Normal Breath Sounds Gastrointestinal/Abdominal: Positive for: Normal Exam, Bowel Sounds, Soft, Other (mild discharge yellow around umbilicus; colostomy in place with no dc.). Negative for: Tenderness Back: Positive for: Normal Inspection. Negative for: L CVA Tenderness, R CVA Tenderness Extremity: Positive for: Normal ROM. Negative for: Tenderness, Pedal Edema Neurologic/Psych: Positive for: Alert, Oriented - Laboratory Results Result Diagrams: 01/22/17 20:22 01/22/17 20:22 Interpretation Of Abn Labs: no acute - ECG O2 Sat by Pulse Oximetry: 99 Pulse Ox Interpretation: Normal - Progress ED Course And Treament: 1939: Surgery resident made aware and will see pt. and contact surgeon. Wants blood work. 2117: Surgery resident saw pt. She spoke with Dr. Garces who agrees to dc with no further tx at this time. Disposition - Clinical Impression Clinical Impression: Discharge from wound Counseled Patient/Family Regarding: Studies Performed, Diagnosis, Need For Followup - Disposition Referrals: Crispin Casillas MD [Staff Provider] - 01/25/17 Disposition: Routine/Home Disposition Time: 21:20 Condition: STABLE Additional Instructions: Return if not better in 3 days. Instructions: Chronic Wound Care (ED)
[2017-01-22] MEDS ORDERED: Sodium Chloride 0.9% 500 ML IV STA (19:35)
--- NOTE | 2017-01-22 20:26 | CP.PCM.CON ---
History of Present Illness - History of Present Illness History of Present Illness: General surgery consult note for Dr. Osiel Morales, PGY-1 Pt S & E at bedside. 21F w/PSH sig for recent Clarisse's evaluated for rectal output and wound drainage. Pt reports yellow drainage from umbilical portion of ex-lap incision x 1 day. On day of evaluation, pt reports moderate amount of brown liquid output from rectal stump. Reports continued formed stool output via colostomy. Denies abdominal pain, N/V/F/C, SOB, CP, palpitations, changes in urinary habits , other complaints. PMH: hx chronic constipation, asthma PSH: ex-lap w/Clarisse's on 12/19 w/Dr. Casillas All: Peanuts SH: Denies ETOH, tobacco, illicit drug use. Review of Systems - Review of Systems All systems: reviewed and no additional remarkable complaints except - Constitutional Constitutional: absent: Chills, Fever - EENT Nose/Mouth/Throat: absent: Sore Throat - Cardiovascular Cardiovascular: absent: Chest Pain, Palpitations - Respiratory Respiratory: absent: Cough - Gastrointestinal Gastrointestinal: Change in Bowel Habits. absent: Abdominal Pain, Hematochezia , Nausea, Vomiting - Genitourinary Genitourinary: absent: Dysuria, Hematuria - Musculoskeletal Musculoskeletal: absent: Numbness, Tingling - Neurological Neurological: absent: Weakness Past Patient History - Infectious Disease Hx of Infectious Diseases: None - Past Social History Alcohol: None Drugs: Denies - CARDIAC Hx Cardiac Disorders: No - PULMONARY Hx Asthma: Yes - NEUROLOGICAL Hx Neurological Disorder: No - ENDOCRINE/METABOLIC Hx Endocrine Disorders: No - HEMATOLOGICAL/ONCOLOGICAL Hx Blood Disorders: No Hx Blood Transfusions: No - MUSCULOSKELETAL/RHEUMATOLOGICAL Hx Musculoskeletal Disorders: No Hx Falls: No - GASTROINTESTINAL Hx Gastrointestinal Disorders: Yes Hx Colostomy: Yes (12/18/16) Hx Constipation: Yes (since 2 years old) - PSYCHIATRIC Hx Psychophysiologic Disorder: No Hx Physical Abuse: No Hx Substance Use: No - SURGICAL HISTORY Hx Surgeries: Yes Other/Comment: Colostomy - ANESTHESIA Hx Anesthesia: Yes Hx Anesthesia Reactions: No Meds Allergies/Adverse Reactions: Allergies Allergy/AdvReac Type Severity Reaction Status Date / Time peanut Allergy Severe hives Verified 12/18/16 14:31 - Medications Medications: Current Medications Sodium Chloride (Sodium Chloride 0.9%) 500 mls @ 100 mls/hr IV .Q5H STA Stop: 01/23/17 00:34 Last Admin: 01/22/17 20:11 Dose: 100 mls/hr Physical Exam - Constitutional Appears: Non-toxic, No Acute Distress - Head Exam Head Exam: ATRAUMATIC, NORMAL INSPECTION, NORMOCEPHALIC - Eye Exam Eye Exam: EOMI, Normal appearance - ENT Exam ENT Exam: Mucous Membranes Moist, Normal Exam - Neck Exam Neck exam: Positive for: Full Rom, Normal Inspection - Respiratory Exam Respiratory Exam: Clear to Auscultation Bilateral, NORMAL BREATHING PATTERN - Cardiovascular Exam Cardiovascular Exam: REGULAR RHYTHM, +S1, +S2 - GI/Abdominal Exam GI & Abdominal Exam: Normal Bowel Sounds, Soft. absent: Distended, Firm, Guarding, Rebound, Tenderness Additional comments: ex-lap incision well healed at proximal and distal aspects, scant amount of serous drainage from umbilical portion of incision, no fluctuance or induration , non erythematous - Extremities Exam Extremities exam: Positive for: normal inspection - Neurological Exam Neurological exam: Alert, CN II-XII Intact, Oriented x3 - Psychiatric Exam Psychiatric exam: Normal Affect, Normal Mood - Skin Skin Exam: Dry, Normal Color, Warm Results - Vital Signs Recent Vital Signs: Last Vital Signs Temp 97.6 F 01/22/17 18:59 Pulse 109 H 01/22/17 18:59 Resp 18 01/22/17 18:59 BP 108/60 01/22/17 18:59 Pulse Ox 99 01/22/17 20:08 Assessment & Plan - Assessment and Plan (Free Text) Assessment: 21F s/p Clarisse's procedure with rectal output and serous drainage from wound Plan: Pt to follow up with Dr. Casillas in the office DW attending Carmen, PGY-1 - Date & Time Date: 01/22/17 Time: 20:29
[2017-01-22 20:44] LABS: BASO % 0.6 % (0.0-2.0); EOS # 0.1 K/uL (0.0-0.7); EOS % 2.4 % (0.0-4.0); HEMOGLOBIN 13.1 g/dL (12.0-16.0); LYMPH # 1.8 K/uL (1.0-4.3); LYMPH % 32.6 % (20.0-40.0); MEAN CORPUSCULAR HEMOGLOBIN 28.9 pg (27.0-31.0); MEAN CORPUSCULAR HGB CONC 32.5 g/dL (33.0-37.0); MEAN PLATELET VOLUME 7.1 fl (7.2-11.7); MONO # 0.4 K/uL (0.0-0.8); MONO % 7.1 % (0.0-10.0); NEUT # 3.2 K/uL (1.8-7.0); NEUT % 57.3 % (50.0-75.0); NRBC % 0.1 % (0.0-0.0); RBC 4.53 Mil/uL (3.80-5.20); RED CELL DISTRIBUTION WIDTH 15.8 % (11.5-14.5); WHITE BLOOD COUNT 5.7 K/uL (4.8-10.8)
[2017-01-22 20:47] LABS: ALB/GLOB RATIO 1.1 (1.0-2.1); ALBUMIN 4.7 g/dL (3.5-5.0); ALT/SGPT 93 U/L (9-52); AST/SGOT 81 U/L (14-36); BLOOD UREA NITROGEN 12 mg/dl (7-17); CALCIUM 9.3 mg/dL (8.4-10.2); GFR AFRICAN-AMERICAN > 60; GFR NON-AFRICAN AMERICAN > 60
[2017-01-23 12:04] VITALS: BP 112/76; PULSE 91; RESP 18; TEMP 97.5; O2SAT 99
== END 2017-01-22 21:25 | disposition home or self-care (01) ==
LOC: H.ER 18:55
DX: T81.89XA Other complications of procedures, not elsewhere classified, initial encounter (principal); Z93.3 Colostomy status; Z98.0 Intestinal bypass and anastomosis status

== ENCOUNTER 2017-07-18 22:22 | Emergency (ER) | payer MEDICAID, OTHER ==
[2017-07-18 22:30] VITALS: BP 155/91; PULSE 116; RESP 16; TEMP 99.4; O2SAT 99
[2017-07-18] MEDS ORDERED: Morphine 4 MG/ML VIAL ONE (23:03)
--- NOTE | 2017-07-18 23:14 | ED PDOC ---
HPI: Abdomen Time Seen by Provider: 07/18/17 22:32 Chief Complaint (Nursing): Abdominal Pain Chief Complaint (Provider): Abdominal Pain History Per: Patient History/Exam Limitations: no limitations Onset/Duration Of Symptoms: Hrs (earlier today), Intermittent Episodes Current Symptoms Are (Timing): Still Present Quality Of Discomfort: Sharp, Cramping Associated Symptoms: denies: Fever, Nausea, Vomiting, Diarrhea Last Bowel Movement: Today (this morning) Additional Complaint(s): 21 year old female presents to ED with complaints of abdominal pain since earlier today and recently had a colostomy reversal x1 month ago. Describes pain as sharp, cramping, and episodic. Confirms that she has not experienced abdominal pain post colostomy reversal until earlier today. (-) nausea, vomiting , diarrhea, or fever. (+) bowel movement this morning. PCP: [facility] Past Medical History Reviewed: Historical Data, Nursing Documentation, Vital Signs Vital Signs: Last Vital Signs Temp 99.4 F 07/18/17 22:25 Pulse 116 H 07/18/17 22:25 Resp 16 07/18/17 22:25 BP 155/91 H 07/18/17 22:25 Pulse Ox 99 07/18/17 22:25 - Medical History PMH: Asthma - Surgical History Surgical History: Denies: No Surg Hx Other surgeries: colostomy reversal x1 month ago - Family History Family History: States: No Known Family Hx - Social History Current smoker - smoking cessation education provided: No Ex-Smoker (has not smoked in the last 12 months): No Alcohol: None Drugs: Denies - Immunization History Hx Tetanus Toxoid Vaccination: No Hx Influenza Vaccination: No Hx Pneumococcal Vaccination: No - Home Medications Home Medications: Ambulatory Orders Medication Instructions Recorded Amoxicillin/Clavulanate [Augmentin 1 tab PO BID #14 tab 12/25/16 875 MG-125 MG] Lactulose [Enulose] 20 gm PO DAILY PRN #500 ml 12/25/16 Pantoprazole [Protonix EC Tab] 40 mg PO DAILY #30 ect 12/25/16 metroNIDAZOLE [Flagyl] 500 mg PO TID #20 tab 12/25/16 oxyCODONE/Acetaminophen [Percocet 1 tab PO Q6 PRN #20 tab 12/25/16 5/325 mg Tab] - Allergies Allergies/Adverse Reactions: Allergies Allergy/AdvReac Type Severity Reaction Status Date / Time peanut Allergy Severe hives Verified 07/18/17 22:25 Review of Systems ROS Statement: Except As Marked, All Systems Reviewed And Found Negative Constitutional: Negative for: Fever Gastrointestinal: Positive for: Abdominal Pain, Other ((+) normal bowel movement ). Negative for: Nausea, Vomiting, Diarrhea Physical Exam - Reviewed Nursing Documentation Reviewed: Yes Vital Signs Reviewed: Yes - Physical Exam Appears: Positive for: Non-toxic, No Acute Distress Skin: Positive for: Normal Color, Warm, Dry Eye Exam: Positive for: Normal appearance Neck: Positive for: Normal Cardiovascular/Chest: Positive for: Regular Rate, Rhythm. Negative for: Murmur Respiratory: Positive for: Normal Breath Sounds. Negative for: Respiratory Distress Gastrointestinal/Abdominal: Positive for: Soft, Tenderness (generalized abdominal tenderness), Other ((+) left-sided abdominal tenderness. (+) vertical incision that is clean, dry, and intact). Negative for: Guarding, Rebound Extremity: Positive for: Normal ROM. Negative for: Deformity Neurologic/Psych: Positive for: Alert, Oriented. Negative for: Motor/Sensory Deficits - ECG O2 Sat by Pulse Oximetry: 99 (RA) Pulse Ox Interpretation: Normal Medical Decision Making Medical Decision Makin Initial impression: abdominal pain status post colostomy reversal Initial plan: * CTA A/P * Labs * UPreg * UDip * PTT/PT * Morphine 2mg IV * UA * Re-eval Scribe Attestation: Documented by Bren Fan acting as a scribe for Vale Valencia MD. Scribe Attestation: All medical record entries made by the Scribe were at my direction and personally dictated by me. I have reviewed the chart and agree that the record accurately reflects my personal performance of the history, physical exam, medical decision making, and the department course for this patient. I have also personally directed, reviewed, and agree with the discharge instructions and disposition. Disposition - Disposition
[2017-07-18 23:32] LABS: SQUAMOUS EPITHIAL 30 /hpf (0-5); URINE BACTERIA OCC (<OCC); URINE BILIRUBIN NEGATIVE (NEGATIVE); URINE BLOOD SMALL (NEGATIVE); URINE CLARITY CLOUDY (Clear); URINE COLOR YELLOW (YELLOW); URINE GLUCOSE (UA) NEG (Normal); URINE LEUKOCYTE ESTERASE MOD Leu/uL (Negative); URINE NITRATE NEGATIVE (NEGATIVE); URINE PROTEIN NEGATIVE (NEGATIVE)
--- NOTE | 2017-07-18 23:40 | ED PDOC ---
- Laboratory Results Result Diagrams: 07/18/17 23:36 07/18/17 23:36 - ECG O2 Sat by Pulse Oximetry: 99 (RA) Medical Decision Making Medical Decision Makin Patient signed out to me from Dr. Valencia pending CT and labs. 0107 CT FINDINGS Lower thorax: Small right pleural effusion. Round right lung base consolidation secondary to atelectasis or infiltrate. ABDOMEN: Liver: Unremarkable. No mass. Gallbladder and bile ducts: The gallbladder is contracted but otherwise normal. No calcified stones. No ductal dilation. Pancreas: Unremarkable. No mass. No ductal dilation. Spleen: Unremarkable. No splenomegaly. Adrenals: Unremarkable. No mass. Kidneys and ureters: There are multiple bilateral renal collecting system calcifications. No hydronephrosis. Stomach and bowel: There is umbilical hernia which contains a short segment of small bowel without obstruction. There has been interval reversal of the previously noted left lower quadrant colostomy. Anastomotic sutures are present in the rectosigmoid colon. Moderate to severe diffuse gas filled distention of the large bowel. The cecum measures up to 8.1 cm. The rectum is distended with fluid measuring up to 9.8 cm. There are mildly prominent fluid filled loops of small bowel. No transition point to suggest small bowel obstruction. There is no wall thickening or pericolonic stranding to suggest colitis. Appendix: A normal appendix is identified. PELVIS: Bladder: Unremarkable. No mass. Reproductive: There is a cystic, low density structure in the left lower quadrant measuring 2.7 x 4.5 cm probably secondary to an ovarian cyst. ABDOMEN and PELVIS: Intraperitoneal space: No free air. No significant fluid collection. Bones/joints: No acute fracture. No dislocation. Soft tissues: Unremarkable. Vasculature: Unremarkable. No abdominal aortic aneurysm. Lymph nodes: Unremarkable. No enlarged lymph nodes. IMPRESSION: Interval colostomy reversal with rectosigmoid anastomosis. Moderate to severe diffuse distention of the large bowel probably secondary to an ileus. Distended fluid-filled rectum distal to the anastomosis. Mildly prominent fluid filled loops of small bowel, probable ileus. No transition point to suggest small bowel obstruction. Nephrolithiasis. Small umbilical hernia containing bowel without incarceration. Small right pleural effusion with right lung base rounded consolidation. Differential diagnosis includes round atelectasis versus pneumonia. Probable left ovarian cyst. No follow-up is necessary. 0152 Upon re-evaluation, patient notes feeling completely better and is tolerating PO.Patient made aware of CT findings and given copy of report for follow up. Patient is stable for discharge home. DX: ileus Scribe Attestation: Documented by Bren Fan acting as a scribe for Angie Renner MD. Scribjude Attestation: All medical record entries made by the Scribe were at my direction and personally dictated by me. I have reviewed the chart and agree that the record accurately reflects my personal performance of the history, physical exam, medical decision making, and the department course for this patient. I have also personally directed, reviewed, and agree with the discharge instructions and disposition. Disposition Counseled Patient/Family Regarding: Studies Performed, Diagnosis, Need For Followup - Clinical Impression Clinical Impression: Abdominal discomfort, Ileus - POA Present On Arrival: None - Disposition Referrals: [facility] [Outside] [facility] [Outside] Disposition: Routine/Home Disposition Time: 01:15 Condition: IMPROVED Additional Instructions: follow up with your doctor in 1-2 days return to the ED with any worsening or concerning symptoms. Instructions: Abdominal Pain (ED), Ileus (ED) Forms: [employer] ([place])
[2017-07-18 23:43] LABS: BASO # 0.1 K/uL (0.0-0.2); BASO % 0.9 % (0.0-2.0); EOS # 0.4 K/uL (0.0-0.7); EOS % 5.2 % (0.0-4.0); LYMPH # 1.8 K/uL (1.0-4.3); LYMPH % 20.9 % (20.0-40.0); MEAN CELL VOLUME 83.9 fl (81.0-99.0); MEAN CORPUSCULAR HEMOGLOBIN 27.4 pg (27.0-31.0); MEAN CORPUSCULAR HGB CONC 32.6 g/dL (33.0-37.0); MEAN PLATELET VOLUME 6.6 fl (7.2-11.7); MONO # 0.6 K/uL (0.0-0.8); MONO % 7.4 % (0.0-10.0); NEUT # 5.6 K/uL (1.8-7.0); NEUT % 65.6 % (50.0-75.0); NRBC % 0.1 % (0.0-0.0); RBC 4.37 Mil/uL (3.80-5.20); RED CELL DISTRIBUTION WIDTH 15.7 % (11.5-14.5); WHITE BLOOD COUNT 8.5 K/uL (4.8-10.8)
[2017-07-18 23:51] LABS: INR 1.2 (0.9-1.2); PARTIAL THROMBOPLASTIN TIME 32.8 Seconds (25.6-37.1); PROTHROMBIN TIME 13.5 Seconds (9.8-13.1)
[2017-07-18 23:52] LABS: AST/SGOT 24 U/L (14-36)
[2017-07-19 00:01] LABS: ALT/SGPT 39 U/L (9-52); BLOOD UREA NITROGEN 9 mg/dl (7-17); CALCIUM 9.3 mg/dL (8.4-10.2); GFR AFRICAN-AMERICAN > 60; GFR NON-AFRICAN AMERICAN > 60
[2017-07-19] MEDS ORDERED: Sodium Chloride 0.9% 50 ML IV ONE (00:07)
[2017-07-19] MEDS ORDERED: Iohexol 300 100 ML IJ ONE (00:07)
--- NOTE | 2017-07-19 01:07 | CT ---
EXAM: CT Abdomen and Pelvis With Intravenous Contrast CLINICAL HISTORY: 21 years old, female; Pain; Abdominal pain; Generalized; Prior surgery; Surgery date: 6+ months; Surgery type: Colon; Additional info: Abd pain, S/P colostomy reversal on 06/15/17 TECHNIQUE: Axial computed tomography images of the abdomen and pelvis with intravenous contrast. All CT scans at this facility use one or more dose reduction techniques, viz.: automated exposure control; ma/kV adjustment per patient size (including targeted exams where dose is matched to indication; i.e. head); or iterative reconstruction technique. Coronal and sagittal reformatted images were created and reviewed. CONTRAST: 95 mL of [id number] administered intravenously. COMPARISON: CT - ABD PELVIS IV CONTRAST ONLY 2016-12-27 18:28 FINDINGS: Lower thorax: Small right pleural effusion. Round right lung base consolidation secondary to atelectasis or infiltrate. ABDOMEN: Liver: Unremarkable. No mass. Gallbladder and bile ducts: The gallbladder is contracted but otherwise normal. No calcified stones. No ductal dilation. Pancreas: Unremarkable. No mass. No ductal dilation. Spleen: Unremarkable. No splenomegaly. Adrenals: Unremarkable. No mass. Kidneys and ureters: There are multiple bilateral renal collecting system calcifications. No hydronephrosis. Stomach and bowel: There is umbilical hernia which contains a short segment of small bowel without obstruction. There has been interval reversal of the previously noted left lower quadrant colostomy. Anastomotic sutures are present in the rectosigmoid colon. Moderate to severe diffuse gas filled distention of the large bowel. The cecum measures up to 8.1 cm. The rectum is distended with fluid measuring up to 9.8 cm. There are mildly prominent fluid filled loops of small bowel. No transition point to suggest small bowel obstruction. There is no wall thickening or pericolonic stranding to suggest colitis. Appendix: A normal appendix is identified. PELVIS: Bladder: Unremarkable. No mass. Reproductive: There is a cystic, low density structure in the left lower quadrant measuring 2.7 x 4.5 cm probably secondary to an ovarian cyst. ABDOMEN and PELVIS: Intraperitoneal space: No free air. No significant fluid collection. Bones/joints: No acute fracture. No dislocation. Soft tissues: Unremarkable. Vasculature: Unremarkable. No abdominal aortic aneurysm. Lymph nodes: Unremarkable. No enlarged lymph nodes. IMPRESSION: Interval colostomy reversal with rectosigmoid anastomosis. Moderate to severe diffuse distention of the large bowel probably secondary to an ileus. Distended fluid-filled rectum distal to the anastomosis. Mildly prominent fluid filled loops of small bowel, probable ileus. No transition point to suggest small bowel obstruction. Nephrolithiasis. Small umbilical hernia containing bowel without incarceration. Small right pleural effusion with right lung base rounded consolidation. Differential diagnosis includes round atelectasis versus pneumonia. Probable left ovarian cyst. No follow-up is necessary.
== END 2017-07-19 03:06 | disposition home or self-care (01) ==
LOC: H.ER 22:22
DX: K56.7 Ileus, unspecified (principal); Z98.890 Other specified postprocedural states
CPT/HCPCS: 74177; 80053; 81003; 81025; 85025; 85610; 85730; 96374; 99282; J2270; Q9967